=== PATIENT | female | born 1945 | race Caucasian/White ===

== ENCOUNTER → 2017-09-10 14:53 | Outpatient (CLI) | payer MEDICARE, OTHER, SELFPAY ==
--- NOTE | 2017-09-10 15:04 | BI_ITS ---
MAMMOGRAPHY - BILATERAL SCREENING REASON FOR EXAM: Female, 72 years old. Routine annual screening examination. PERTINENT HISTORY: Non-contributory. Bilateral breast implants. TECHNIQUE: Digital bilateral breast jaime (3D mammographic acquisition) in the CC and MLO projections. 2-D mediolateral oblique (MLO) and craniocaudad (CC) views of both breasts were obtained. CAD: Full Field Digital Mammography with Computer Added Detection was performed. COMPARISON: Comparison is made with prior study dated January 04, 2017. FINDINGS: Breast Composition: The breasts are heterogeneously dense, which may obscure small masses. There are no dominant masses or suspicious calcifications. Stable appearance of the bilateral breast implants. No other significant abnormalities are identified. There has been no significant change since the prior study. BI/SCREENING MAMM (CAD), BILAT IMPRESSION: Stable bilateral screening mammogram. Yearly follow-up mammogram recommended. (A) ASSESSMENT CATEGORY: BIRADS Category 2: Benign. A letter regarding these results will be sent to the patient by the facility within 30 days. Approximately 10% of breast cancers are not detected by mammography. A normal mammogram should not delay biopsy of a clinically suspicious abnormality. [id number] Electronically Signed: Alberto Chopra MD at 8:44 EDT Tel [phone], Service support ,
== END ==
PROVIDERS: Family Provider Family Medicine; PCP Family Medicine; Visit Provider Family Medicine
DX: Z12.31 Encounter for screening mammogram for malignant neoplasm of breast (principal)
CPT/HCPCS: 77063; 77067

== ENCOUNTER → 2018-03-31 15:29 | Outpatient (CLI) | payer MEDICARE, OTHER, SELFPAY ==
[2018-03-31 18:13] LABS: ALB/GLOB Ratio 0.9 RATIO (0.9-2.4); AST(SGOT) 18 U/L (15-37); Alanine Aminotransfer ALT/SGPT 27 U/L (13-56); Albumin, Serum 3.7 g/dL (3.2-5.0); Alkaline Phosphatase 61 U/L (45-117); Anion Gap 8 (5-15); BUN 14 mg/dL (7-18); BUN/Creat Ratio 18.5 RATIO (10-20); Calcium,Total 8.7 mg/dL (8.5-10.1); Chloride 106 mmol/L (98-107); Creatinine, Serum 0.76 mg/dL (0.55-1.02); EST Glomerular Filtration Rate 80 mL/min (>60); Est Glom Filt Rate - Afr Amer 97 mL/min (>60); Globulin 3.9 g/dL (2.2-4.2); Glucose 91 mg/dL (74-106); Potassium 3.6 mmol/L (3.5-5.1); Protein, Total 7.6 g/dL (6.4-8.2); Sodium Level 140 mmol/L (136-145); Thyroid Stim Hormone (TSH) 1.52 uIU/mL (0.358-3.74)
[2018-03-31 18:16] LABS: Vitamin D,25 Hydroxy 19.2 ng/mL (29.95-100.01)
== END ==
PROVIDERS: Family Provider Family Medicine; PCP Family Medicine; Visit Provider Family Medicine
DX: M81.0 Age-related osteoporosis without current pathological fracture (principal); R73.03 Prediabetes
CPT/HCPCS: 36415; 80053; 82306; 84443

== ENCOUNTER → 2018-10-13 09:50 | Outpatient (CLI) | payer MEDICARE, OTHER, SELFPAY ==
--- NOTE | 2018-10-13 10:00 | BD_ITS ---
STUDY: DUAL ENERGY X-RAY ABSORPTIOMETRY / DXA REASON FOR EXAM: Female, 73 years old. Early menopause. Loss of height. TECHNIQUE: Bone Mineral Density (BMD) measurements of lumbar spine and bilateral hips were obtained. COMPARISON: Comparison is made with prior examination dated July 07, 2016. FINDINGS: Lumbar Spine (L1-L4): g/cm2 (0.763) / T-score (-3.5) / Z-score (-1.8) Findings are suggestive of osteoporosis with a high fracture risk. Increased thoracic kyphosis. Left Femur Total: g/cm2 (0.753) / T-score (-2.0) / Z-score (-0.4) Left Femoral Neck: g/cm2 (0.762) / T-score (-2.0) / Z-score (-0.2) Right Femur Total: g/cm2 (0.746) / T-score (-2.1) / Z-score (-0.4) Right Femoral Neck: g/cm2 (0.772) / T-score (-1.9) / Z-score (-0.1) The T-Scores on the most recent prior examination were: Lumbar Spine (L1-L4): There has been worsening of bone density since the previous examination. Left Femur Total: which represents an improvement of 0.4%. Right Femur Total: which represents a worsening of 2.9%. BD/Dexa Bone Density Study IMPRESSION: The patient is considered osteoporotic as outlined below according to World [employer] Organization (WHO) criteria with a high fracture risk. There has been worsening of bone density since the previous examination. Reference Information: The T-score is the number of standard deviations above or below the standard which is normal for young adults at their peak bone mineral density. The World Health Organization (WHO) interprets the T-scores as follows: Above -1 Normal bone density Between -1 and -2.5 Osteopenia Equal to / or below -2.5 Osteoporosis As a practical clinical guideline, osteopenia may be graded as follows: Mild -1 through -1.5 Moderate -1.6 through -2.0 Severe -2.1 through -2.4 The Z-score is the number of standard deviations above or below age-matched controls. A Z-score of less than -1.5 would be considered abnormal. References: 1. NIH Osteoporosis and Related Bone Diseases http://www.osteo.org 2. International Society for Clinical Densitometry http://www.iscd.org 3. National Osteoporosis Foundation http://www.nof.org Electronically Signed: Alberto Chopra, at 13:04 EDT , Service support ,
== END ==
PROVIDERS: Family Provider Family Medicine; PCP Family Medicine; Referring Provider Family Medicine; Visit Provider Family Medicine
DX: Z78.0 Asymptomatic menopausal state (principal)
CPT/HCPCS: 77080

== ENCOUNTER → 2018-10-17 13:48 | Outpatient (CLI) | payer MEDICARE, OTHER, SELFPAY ==
[2018-10-17 15:54] LABS: Anion Gap 6 (5-15); BUN 14 mg/dL (7-18); BUN/Creat Ratio 16.1 RATIO (10-20); Calcium,Total 9.1 mg/dL (8.5-10.1); Chloride 107 mmol/L (98-107); Creatinine, Serum 0.87 mg/dL (0.55-1.02); EST Glomerular Filtration Rate 68 mL/min (>60); Est Glom Filt Rate - Afr Amer 82 mL/min (>60); Glucose 124 mg/dL (74-106); Potassium 3.9 mmol/L (3.5-5.1); Sodium Level 139 mmol/L (136-145)
[2018-10-17 16:06] LABS: Vitamin D,25 Hydroxy 22.6 ng/mL (29.95-100.01)
== END ==
PROVIDERS: Family Provider Family Medicine; PCP Family Medicine; Visit Provider Family Medicine
DX: M81.0 Age-related osteoporosis without current pathological fracture (principal)
CPT/HCPCS: 36415; 80048; 82306

== ENCOUNTER → 2018-10-24 15:02 | Outpatient (CLI) | payer MEDICARE, OTHER, SELFPAY ==
--- NOTE | 2018-10-24 15:03 | BI_ITS ---
MAMMOGRAPHY - BILATERAL SCREENING REASON FOR EXAM: Female, 73 years old. Routine annual screening examination. PERTINENT HISTORY: Non-contributory. History of bilateral breast implants. TECHNIQUE: Digital bilateral breast jaime (3D mammographic acquisition) in the CC and MLO projections. 2-D mediolateral oblique (MLO) and craniocaudad (CC) views of both breasts were obtained. CAD: Full Field Digital Mammography with Computer Added Detection was performed. COMPARISON: Comparison is made with prior examination dated September 10, 2017 and July 07, 2016. FINDINGS: Breast Composition: The breasts are extremely dense, which lowers the sensitivity of mammography. There are no dominant masses or suspicious calcifications. Stable appearance of the bilateral breast implants. No other significant abnormalities are identified. There has been no significant change since the prior study. BI/SCREENING MAMM (CAD), BILAT IMPRESSION: Stable bilateral screening mammogram. Yearly follow-up mammogram recommended. (A) ASSESSMENT CATEGORY: BIRADS Category 2: Benign. A letter regarding these results will be sent to the patient by the facility within 30 days. Approximately 10% of breast cancers are not detected by mammography. A normal mammogram should not delay biopsy of a clinically suspicious abnormality. [id number] Electronically Signed: Alberto Chopra, at 9:21 EDT , Service support ,
== END ==
PROVIDERS: Family Provider Family Medicine; PCP Family Medicine; Referring Provider Family Medicine; Visit Provider Family Medicine
DX: Z12.31 Encounter for screening mammogram for malignant neoplasm of breast (principal)
CPT/HCPCS: 77063; 77067

== ENCOUNTER → 2019-02-17 10:55 | Outpatient (CLI) | payer MEDICARE, OTHER, SELFPAY ==
--- NOTE | 2019-02-17 11:01 | RAD_ITS ---
STUDY: X-RAY - LUMBAR SPINE REASON FOR EXAM: Female, 73 years old. Back pain. TECHNIQUE: 5 view(s) of the lumbar spine were obtained. COMPARISON: None FINDINGS: Normal lumbar lordosis. There is no substantial scoliosis. There is a normal alignment of the vertebrae. There is multilevel endplate spondylosis of the lumbar vertebrae. Normal disc space heights. There is atherosclerotic calcification of the abdominal aorta without a demonstrated aneurysm. There are clips within the pelvis consistent with prior tubal ligation. There is a linear density projecting over the pelvis left of midline which may be postsurgical in nature. RAD/L/S Spine Min 4 Views IMPRESSION: Degenerative changes. Atherosclerosis. Electronically Signed: Nicky Fernandez MD at 21:41 EDT Tel , Service support ,
== END ==
PROVIDERS: Family Provider Family Medicine; PCP Family Medicine; Referring Provider Family Medicine; Visit Provider Family Medicine
DX: M54.9 Dorsalgia, unspecified (principal)
CPT/HCPCS: 72110

== ENCOUNTER 2019-03-02 10:51 | Outpatient (RCR) | payer MEDICARE, OTHER, SELFPAY ==
--- NOTE | 2019-03-02 11:48 | HP.PTEVAL ---
Patient's Visit Information GAVIN STRANGE is a 73 year old F referred to Physical Therapy by Paul Cool MD with a diagnosis of ARTHRITIS LUMBAR SPINE. Date of Evaluation: 03/02/19 Physical Therapist: Alessio Kirkland PT, Cert MDT, OCS - Visit Plan Frequency: 1 VISIT Plan: EVAL ONLY FOR HEP - Subjective Findings: This 73 y/o female presents to physical therapy with lumbar pain with arthritis . Patient has occasionally back pain. Pateint is active but also had right L-S pain from working in garden 6 hrs. Patient denies parathesia/tingling.Bowel/bladder -. Coughing/sneezing-. Aggravating factors yardwork ,lifting,. Alleviating factors walking.Patient pain affects ability to do housework and yard work. did x-rays DDD. SOCIAL: . VOCATION: retired - Objective POSTURE: mild foward posture. GAIT: normal elias. PALPATION: unremrakable. NEURO: intact. MMT: quads/hams/hams/hip/ankle 4/5. FLEXABILITY: Hamstrings MIN tight. LUMBAR ROM: flexion min loss,extension min loss,side glides min loss - Special Tests L/S Slump test left side: Negative L/S Slump test right side: Negative L/S Left Straight Leg Raise: Negative L/S Right Straight Leg Raise: Negative Lumbar Standing: Flexion - Mechanical Response: No effect Lumbar Standing: Flexion - Symptoms During Testing: Produces Lumbar Standing: Extension - Mechanical Response: No effect Lumbar Standing: Extension - Symptoms During Testing: Increases Lumbar Standing: Extension - Symptoms After Testing: No worse Lumbar Standing: Right Side Glides - Mechanical Response: No effect Lumbar Standing: Right Side [place] - Symptoms During Testing: No effect Lumbar Standing: Right Side [place] - Symptoms After Testing: No effect Lumbar Standing: Left Side [place] - Mechanical Response: No effect Lumbar Standing: Left Side [place] - Symptoms During Testing: No effect Lumbar Standing: Left Side [place] - Symptoms After Testing: No effect - Goals Goal 1:: Provided HEP FOR lumbar spine. Goal Time Frame: 1 visit - Rehabilitation Potential Physical Therapy Diagnosis: This patient gas weak core muscles thus benifit from HEP. Rehabilitation Potential: Good - Anticipated Interventions Patient/Client Instruction: Educate patient on: Condition, Plan of Care Other: HEP Thank you for the opportunity to evaluate your patient. For Medicare and Medicare HMO plans, please review the plan of care and approve it. It will need to be FAXED BACK to us at [phone] for Medicare purposes. For Medicare only, by signing this I certify the plan of care. Please let me know if there are questions or concerns regarding this plan of care. Physician Signature: Date:
== END 2019-03-02 19:00 | disposition home or self-care (01) ==
LOC: PT 10:51
PROVIDERS: Family Provider Family Medicine; PCP Family Medicine; Visit Provider Family Medicine
DX: M46.96 Unspecified inflammatory spondylopathy, lumbar region (principal)
CPT/HCPCS: 97162

== ENCOUNTER → 2019-03-28 14:02 | Outpatient (CLI) | payer MEDICARE, OTHER, SELFPAY ==
[2019-03-28 16:39] LABS: Vitamin D,25 Hydroxy 54.5 ng/mL (29.95-100.01)
== END ==
PROVIDERS: Family Provider Family Medicine; PCP Family Medicine; Referring Provider Family Medicine; Visit Provider Family Medicine
DX: E55.9 Vitamin D deficiency, unspecified (principal)
CPT/HCPCS: 36415; 82306

== ENCOUNTER → 2019-10-02 14:58 | Outpatient (CLI) | payer MEDICARE, OTHER, SELFPAY ==
[2019-10-02 18:19] LABS: Absolute Lymphocyte Count 1.28 X10^3/uL (0.83-4.51); Absolute Neutrophil Count 4.4 X10^3/uL (2.0-7.7); Basophil# 0.03 X10^3/uL; Basophil% 0.5 % (0-1); Eosinophil# 0.06 X10^3/uL; Eosinophils% 0.9 % (0-5); Hematocrit 40.2 % (37-47); Hemoglobin 13.1 g/dL (12.0-15.0); Lymphocyte # 1.28 X10^3/ul (4.0); Mean Corp Hgb Conc 32.6 g/dL (32-36); Mean Corpuscular Hgb 27.6 pg (27.0-32.0); Mean Corpuscular Volume 84.6 fL (81-99); Mean Platelet Vol. 10.5 fl (6.2-12.0); Monocyte# 0.63 X10^3/uL; Monocyte% 9.8 % (0-10); NRBC Flagged by Analyzer 0 % (0-5); Neutrophil # 4.39 X10^3/uL (2.7-7.7); Neutrophil % 68.6 % (47-70); Platelet Count 274 K/mm3 (150-450); RBC Distribution Width CV 14.2 % (11.6-14.6); RBC Distribution Width SD 43.9 fl (35.1-43.9); Red Blood Count 4.75 M/mm3 (4.2-5.4); White Blood Count 6.4 K/mm3 (4.4-11.0)
[2019-10-02 18:21] LABS: Vitamin B12 337 pg/mL (211-911)
[2019-10-02 18:30] LABS: Anion Gap 4 (5-15); BUN 14 mg/dL (7-18); BUN/Creat Ratio 15.8 RATIO (10-20); Calcium,Total 9.2 mg/dL (8.5-10.1); Chloride 108 mmol/L (98-107); Cholesterol 201 mg/dL (200); Creatinine, Serum 0.89 mg/dL (0.55-1.02); EST Glomerular Filtration Rate 66 mL/min (>60); Est Glom Filt Rate - Afr Amer 80 mL/min (>60); Glucose 94 mg/dL (74-106); High Density Lipoprotein 73 mg/dL; Potassium 3.6 mmol/L (3.5-5.1); Sodium Level 139 mmol/L (136-145); Triglycerides 102 mg/dL; Very Low Density Lipoprotein 20 mg/dL (5-40)
[2019-10-02 18:31] LABS: Erythrocyte Sedimentation Rate 15 mm/hr (0-30)
== END ==
LOC: MFPLAB 15:00 → LAB 10-03 07:08 → LABSPEC 10-03 07:36
PROVIDERS: PCP Family Medicine; Referring Provider Family Medicine; Visit Provider Family Medicine
DX: Z00.00 Encounter for general adult medical examination without abnormal findings (principal); R41.3 Other amnesia; I10 Essential (primary) hypertension
CPT/HCPCS: 36415; 80048; 80061; 82607; 84443; 85025; 85652; 87077; 87086; 87088; 87186

== ENCOUNTER → 2019-10-26 10:08 | Outpatient (CLI) | payer MEDICARE, OTHER, SELFPAY ==
[2019-10-06 10:46] VITALS: BMI 17.4
--- NOTE | 2019-10-26 10:09 | BI_ITS ---
MAMMOGRAPHY - BILATERAL SCREENING REASON FOR EXAM: Female, 74 years old. Routine annual screening examination. PERTINENT HISTORY: Non-contributory. Bilateral breast implants. TECHNIQUE: Digital bilateral breast lavell (3D mammographic acquisition) in the CC and MLO projections. 2-D mediolateral oblique (MLO) and craniocaudad (CC) views of both breasts were obtained. CAD: Full Field Digital Mammography with Computer Added Detection was performed. COMPARISON: Comparison is made with prior study dated October 24, 2018 and September 10, 2017. FINDINGS: Breast Composition: The breasts are extremely dense, which lowers the sensitivity of mammography. There are no dominant masses or suspicious calcifications. Stable appearance of the bilateral breast implants. No other significant abnormalities are identified. There has been no significant change since the prior study. BI/SCREEN MAMM (CAD) W/LAVELL BILAT IMPRESSION: Stable bilateral screening mammogram. Yearly follow-up mammogram recommended. (A) ASSESSMENT CATEGORY: BIRADS Category 2: Benign. A letter regarding these results will be sent to the patient by the facility within 30 days. Approximately 10% of breast cancers are not detected by mammography. A normal mammogram should not delay biopsy of a clinically suspicious abnormality. [id number] Electronically Signed: Alberto Chopra, at 10:30 EDT , Service support ,
== END ==
PROVIDERS: PCP Internal Medicine; Referring Provider Family Medicine; Visit Provider Family Medicine
DX: Z12.31 Encounter for screening mammogram for malignant neoplasm of breast (principal)
CPT/HCPCS: 77063; 77067

== ENCOUNTER 2020-09-30 10:52 | Observation (INO) | payer MEDICARE, OTHER, SELFPAY ==
[2019-10-06 10:46] VITALS: BMI 17.4
[2020-09-30] VITALS (9 sets, daily range): BP systolic 146–207; BP diastolic 66–90; PULSE 47–106; RESP 14–20; TEMP 36.2–36.6; O2SAT 96–100; BMI 16.5; BMI 16.0; BMI 16.1
--- NOTE | 2020-09-30 11:29 | EKG12_ITS ---
Test Reason : SYNCOPE Blood Pressure : / mmHG Vent. Rate : 081 BPM Atrial Rate : 081 BPM P-R Int : 126 ms QRS Dur : 084 ms QT Int : 392 ms P-R-T Axes : 073 069 063 degrees QTc Int : 455 ms Normal sinus rhythm Left ventricular hypertrophy Abnormal ECG Confirmed by HUNTER DIAZ, ERICKSON ([id number]), online editor AURELIA SUH ([id number]) on 10/02/2020 8:59:43 AM Referred By: ASHLEY
--- NOTE | 2020-09-30 11:29 | CT_ITS ---
STUDY: CT BRAIN WITHOUT CONTRAST REASON FOR EXAM: Female, 75 years old. head injury RADIATION DOSAGE (If Supplied By Facility): CTDIvol = ( 44.99 ) mGy, DLP = ( 745.49 ) mGycm TECHNIQUE: Transaxial CT imaging of the brain was performed without administration of intravenous contrast material. Individualized dose optimization techniques were used for this CT. COMPARISON: No relevant priors. FINDINGS: Normal soft tissue structures. Normal calvarium. There is mild cerebral atrophy with widening of the extra-axial spaces and ventricular dilatation. There are areas of decreased attenuation within the white matter tracts of the supratentorial brain, consistent with microvascular disease changes. There are small punctate calcifications of the basal ganglia which are seen in the aging brain as a normal variant. Normal brainstem. Normal cerebellum. There is no intracranial hemorrhage. There are no findings of an acute ischemic infarction. Normal visualized paranasal sinuses. CT/Brain/Head without Contrast IMPRESSION: Chronic involutional changes of the brain. Electronically Signed: Mohinder De La O MD at 13:03 EDT Tel , Service support ,
--- NOTE | 2020-09-30 11:31 | ED.DCSUM_ITS ---
History of Present Illness Chief Complaint: Syncope Informant: Patient, Family Narrative: 75-year-old female presenting with episode of syncope sustained a laceration to her scalp. Patient's says he does not believe she hit anything on the way down. She was standing at the sink when this occurred. He states she was unconscious for 2 minutes. When she woke up it took her a minute or so to start talking. She denies any dizziness, lightheadedness, shortness of breath, chest pain, fever, chills prior to her fall. She is not had any black or bloody stools. She denies any abdominal pain, dysuria, hematuria. She states has been otherwise eating and drinking normally. She is making normal urine and stool. - Past Medical History (1) Hypertension Status: Chronic (2) Osteoporosis Status: Chronic Past Medical History - Allergies and Home Meds Allergies/Adverse Reactions: Allergies No Known Allergies Allergy (Verified 09/30/20 10:53) Prior records reviewed: Yes Past Medical History: - Surgical History: noncontributory - Viewed in problem list Lives: Spouse/ Significant Other Smoking Status: Light Smoker (<10/day) Alcohol: None Drugs: None - Family History Maternal Family History: Family History (Last Updated 10/06/19 @ 10:42 by Leslie Yancey) Father Diabetes Uncle Diabetes Review of Systems General: Denies: Chills, Fever, Sweats Eyes: Denies: Visual changes - bilaterally, Diplopia ENT: Denies: Rhinorrhea, Sore throat Cardiovascular: Denies: Chest pain, Palpitations Respiratory: Denies: Dyspnea, Cough, Dyspnea on exertion Gastrointestinal: Denies: Abdominal pain, Nausea, Vomiting, Diarrhea, Melena, Hematochezia Genitourinary: Denies: Dysuria, Hematuria, Frequency Musculoskeletal: Denies: Back pain, Extremity Pain Skin: Reports: Wounds - Laceration to scalp.. Denies: Rash Neurological: Denies: Headache, Weakness, Numbness Psych: Denies: Depression, Anxiety, Suicidal thoughts, Suicidal ideations, -, - Endocrine: Denies: Polyuria, Polydipsia, Heat intolerance, Cold intolerance, -, - Physical Exam Vital Signs/Narrative: Vital Signs Temp Pulse Resp BP Pulse Ox 09/30/20 10:55 97.2 F L 106 H 14 177/87 H 99 Inital Vital Signs reviewed: Yes General: Well nourished, Well developed, No Acute Distress Eyes: Perrl, EOMI ENT: Moist mucous membranes, No rhinorrhea Cardiovascular: Regular rate, Regular rhythm, No murmurs Abdomen: Soft, Nontender, Nondistended, Normal bowel sounds Back: Nontender, Normal Inspection Extremities: Nontender, No edema Skin: Normal color, No rash, - - Serration to scalp under matted hair occipitally. No active bleeding. Neurological: Alert, Oriented x3, Cranial nerves II-XII grossly intact, Normal Strength, Normal Sensation Psychological: Normal affect, Normal Mood Diagnostic/Tx/Re-eval Clinical Impression(s) from Imaging Studies Brain CT 09/30/20 11:29 IMPRESSION: Chronic involutional changes of the brain. Electronically Signed: Mohinder De La O MD at 13:03 EDT Tel , Service support , Chest X-Ray 09/30/20 13:30 IMPRESSION: Emphysema without pneumonia or atelectasis. Electronically Signed: Mohinder De La O MD at 14:09 EDT Tel , Service support , Laboratory Data 09/30/20 09/30/20 11:45 11:45 WBC 8.5 RBC 4.92 Hgb 13.6 Hct 41.7 MCV 84.8 MCH 27.6 MCHC 32.6 RDW Std Deviation 44.9 H RDW Coeff of Osbaldo 14.6 Plt Count 220 MPV 9.6 Immature Gran % (Auto) 0.200 Neut % (Auto) 83.0 H Lymph % (Auto) 8.5 L Woodward % (Auto) 7.4 Eos % (Auto) 0.4 Baso % (Auto) 0.5 Absolute Neuts (auto) 7.0 Absolute Lymphs (auto) 0.72 L Nucleated RBC % 0 Sodium 139 Potassium 3.4 L Chloride 104 Carbon Dioxide 28.0 Anion Gap 7 BUN 12 Creatinine 1.00 Estim Creat Clear Calc 31.39 Est GFR (MDRD) Af Amer 70 Est GFR (MDRD) Non-Af 58 L BUN/Creatinine Ratio 12.0 Glucose 105 Calcium 9.0 Total Bilirubin 0.50 AST 14 L ALT 20 Alkaline Phosphatase 61 Troponin I < 0.015 Total Protein 7.9 Albumin 3.8 Globulin 4.1 Albumin/Globulin Ratio 0.9 - Medical Decision Making Seen and evaluated on arrival for episode of syncope in which she lost consciousness and hit her head. Her states that there was delay in her waking up however she was alert and awake after about a few minutes. Patient did not have any seizure activity. EKG performed on arrival shows a sinus rhythm at 81 bpm without signs of ischemic changes as interpreted by myself. Chest x-ray interpreted by myself shows no acute cardiopulmonary process. Radiology does agree. CBC shows stable H&H. CMP is unremarkable with exception of a potassium of 3.4 and a slight decrease in her GFR. Does not have prerenal azotemia. Troponin is negative. After examining the patient's scalp does appear she has a punctate area that was bleeding which is now resolved. She does not require pina at this time. During patient stay in the ED she had been noted to have runs of bradycardia into the 40s and some PVCs on the monitor. This was got caught on EKG. Patient was discussed with who did look at the rhythm strips and felt the patient was best to be admitted for echocardiogram and loop recorder. There was some delay in getting the patient admitted as she kept changing her mind as to whether she would stay in the hospital. Ultimately she did agree to stay in the hospital. Patient was discussed with the hospitalist and patient admitted in stable condition. Impression: 1. Syncope 2. Bradycardia 3. Scalp abrasion ED Disposition - Plan for ED Patient: Disposition: Home or Assisted Living
[2020-09-30 11:58] LABS: Absolute Lymphocyte Count 0.72 X10^3/uL (0.83-4.51); Basophil# 0.04 X10^3/uL; Basophil% 0.5 % (0-1); Eosinophil# 0.03 X10^3/uL; Eosinophils% 0.4 % (0-5); Hematocrit 41.7 % (37-47); Hemoglobin 13.6 g/dL (12.0-15.0); Lymphocyte # 0.72 X10^3/ul (0.83-4.51); Lymphocyte % 8.5 % (19-41); Mean Corp Hgb Conc 32.6 g/dL (32-36); Mean Corpuscular Hgb 27.6 pg (27.0-32.0); Mean Corpuscular Volume 84.8 fL (81-99); Mean Platelet Vol. 9.6 fl (6.2-12.0); Monocyte# 0.63 X10^3/uL; Monocyte% 7.4 % (0-10); NRBC Flagged by Analyzer 0 % (0-5); Neutrophil # 7.02 X10^3/uL (2.7-7.7); Platelet Count 220 K/mm3 (150-450); RBC Distribution Width CV 14.6 % (11.6-14.6); RBC Distribution Width SD 44.9 fl (35.1-43.9); Red Blood Count 4.92 M/mm3 (4.2-5.4); White Blood Count 8.5 K/mm3 (4.4-11.0)
[2020-09-30 12:18] LABS: ALB/GLOB Ratio 0.9 RATIO (0.9-2.4); AST(SGOT) 14 U/L (15-37); Alanine Aminotransfer ALT/SGPT 20 U/L (13-56); Albumin, Serum 3.8 g/dL (3.2-5.0); Alkaline Phosphatase 61 U/L (45-117); Anion Gap 7 (5-15); BUN 12 mg/dL (7-18); Chloride 104 mmol/L (98-107); EST Glomerular Filtration Rate 58 mL/min (>60); Est Glom Filt Rate - Afr Amer 70 mL/min (>60); Estimated Creatinine Clearance 31.39 ml/min; Globulin 4.1 g/dL (2.2-4.2); Glucose 105 mg/dL (74-106); Potassium 3.4 mmol/L (3.5-5.1); Protein, Total 7.9 g/dL (6.4-8.2); Sodium Level 139 mmol/L (136-145)
--- NOTE | 2020-09-30 13:30 | RAD_ITS ---
STUDY: X-RAY CHEST REASON FOR EXAM: Female, 75 years old. syncope TECHNIQUE: Single AP portable view of the chest. COMPARISON: 12/29/2016 FINDINGS: There is hyperinflation of the lungs consistent with chronic obstructive lung disease (COPD). There is no demonstrated pleural abnormality. Normal size heart. Normal mediastinum and jonas. Normal visualized pulmonary arteries. Normal visualized aortic arch and descending thoracic aorta. Normal visualized thoracic spine. Normal visualized ribs, clavicles, and shoulders. There is no demonstrated abnormality of the visualized soft tissue structures of the upper abdomen. RAD/Chest 1 View (Portable) IMPRESSION: Emphysema without pneumonia or atelectasis. Electronically Signed: Mohinder De La O MD at 14:09 EDT Tel , Service support ,
--- NOTE | 2020-09-30 16:00 | ED.RN ---
notified of bradycardia during orthostats. Pt asymptomatic. at bedside and aware of bradycardia.
--- NOTE | 2020-09-30 16:19 | PCM.HP.STD ---
Problem List (1) Scalp laceration Status: Acute (2) Head injury Status: Acute (3) Hypertensive urgency Status: Acute (4) Hypertension Status: Chronic (5) Osteoporosis Status: Chronic History of Present Illness Date of Admission: 09/30/20 Chief Complaint: Collapse, head injury. The patient is a 75 year old F with past medical history as mentioned above presented to the emergency room because of sudden collapse and head injury. Patient stated that she was standing and all of a sudden, she collapsed to the floor. She stated that she had no prodromal symptoms. She denied being dizzy or lightheaded. She denied chest pain, palpitation, shortness of breath. Her mentioned that she collapsed but she did not lose her consciousness. Patient mentioned that she was awake throughout the event and she was aware of surroundings. She mentioned that she is not taking any medication at home but obviously, she does have history of hypertension and she is supposed to be on Norvasc. She saw her PCP on Oct, 2019 and visit note was reviewed. In the emergency department, her blood pressure was very high and was up to 201/90. Initially, she was tachycardic but then heart rate went down to 60s. Other vital signs were stable. Routine blood work was remarkable for potassium of 3.4, otherwise normal. EKG revealed normal sinus rhythm, normal CO interval, normal QRS, normal QTC, no acute ischemic changes. Troponin was negative. CT scan brain showed no acute infarct or hemorrhage. Chest x-ray showed no acute infiltrate or consolidation. She is being admitted for hypertensive urgency, near syncopal episode and collapse as well as head injury. Past Medical History Past Medical History (Chronic Problems): Chronic Problems (Last Updated 10/06/19 @ 10:46 by Leslie Yancey) Hypertension (Chronic) Osteoporosis (Chronic) Medical History: Medical History (Last Updated 10/06/19 @ 10:46 by Leslie Yancey) Decreased hearing H91.90 Rash R21 Allergies No Known Allergies Allergy (Verified 09/30/20 10:53) Home Medications: Ambulatory Orders Medication Instructions Recorded NK 09/30/20 Surgical History: Surgical History (Last Updated 10/06/19 @ 10:41 by Leslie Yancey) No pertinent past surgical history Z78.9 Surgical History: noncontributory - Viewed in problem list Psychiatric History: No pertinent psych hx [employer] History: No pertinent [employer] history Lives: Spouse/ Significant Other Smoking Status: Current every day smoker Tobacco Use: Cigarettes Alcohol: None Drugs: None - *Family History Maternal Family History: Family History (Last Updated 10/06/19 @ 10:42 by Leslie Yancey) Father Diabetes Uncle Diabetes Review of Systems Constitutional: Denies: Anorexia, Chills, Fever, Weakness Eyes: Denies: Blurred vision, Double vision, Drainage, Redness HEENT: Denies: Difficulty Hearing, Dysphasia, Ear Pain, Nasal Congestion, Sore Throat Cardiovascular: Denies: Chest Pain, Chest Pressure, Edema, Heaviness, Palpitations, Syncope Respiratory: Denies: Cough, Pleuritic Pain, Shortness of Breath, Sputum production, Wheezing Gastrointestinal: Denies: Abdominal Pain, Constipation, Diarrhea, Nausea, Vomiting Genitourinary: Denies: Dysuria, Frequency, Hematuria Musculoskeletal: Denies: Arm Pain, Back Pain, Foot Pain Skin: Denies: Dryness, Rash Neurological: Denies: Balance problems, Double vision, Change in Speech, Slurred speech, Confusion, Focal weakness, Headaches, Numbness Psychiatric: Denies: Anxiety, Depression Endocrine: Denies: Change in Body Habitus, Polydipsia, Polyuria VTE Information - Inpt Only VTE Present on Admission: No VTE Mechan Device Prophylaxis: None VTE Pharm Prophylaxis ordered?: Yes Patient Problems: Active and Suspected Problems (Last Updated 10/06/19 @ 10:46 by Leslie Yancey) Scalp laceration (Acute) Head injury (Acute) Hypertensive urgency (Acute) - Physical Exam Vitals/I&O's: Vital Signs Temp Pulse Resp BP Pulse Ox 97.2 F L 63 16 207/90 H 100 09/30/20 10:55 09/30/20 15:55 09/30/20 15:00 09/30/20 15:55 09/30/20 13:00 Oxygen Delivery Method Room Air Weight: 90 lb 2.705 oz Body Mass Index (BMI) 16.5 General: Alert, Oriented x3, Cooperative HEENT: PERRLA, EOMI, - - Traumatic, occipital scalp laceration. Oral: Moist Mucosa, No Gingival or Mucosal Lesions/ Ulcerations Neck: Supple, No JVD, Negative Carotid Bruits, Trachea Midline, Thyroid Normal Size and Texture Lungs: Clear to auscultation, Normal air movement, No rhonchi, No wheeze, No rales, Diminished Cardiovascular: Regular rate, Regular Rhythm, Normal S1, Normal S2, PMI Normal Abdomen: Bowel Sounds Present, Soft, Non Tender, Non-Distended, No Hepato-splenomegaly Extremities: No clubbing, No cyanosis, No edema Skin: No rashes, Ulcer/ Wound - Occipital scalp laceration. Lymphatic: No Cervical, Supraclavicular, or Inguinal Adenopathy Neurological: Cranial nerves II-XII grossly intact, Motor Exam 5/5 strength throughout Psych/Mental Status: Normal Affect, Appropriate, Alert and oriented to time, place, person, mood and affect Laboratory Results 09/30/20 11:45: WBC 8.5, RBC 4.92, Hgb 13.6, Hct 41.7, MCV 84.8, MCH 27.6, MCHC 32.6, RDW Std Deviation 44.9 H, RDW Coeff of Osbaldo 14.6, Plt Count 220, MPV 9.6, Immature Gran % (Auto) 0.200, Neut % (Auto) 83.0 H, Lymph % (Auto) 8.5 L, [place] % (Auto) 7.4, Eos % (Auto) 0.4, Baso % (Auto) 0.5, Absolute Neuts (auto) 7.0, Absolute Lymphs (auto) 0.72 L, Nucleated RBC % 0 09/30/20 11:45: Sodium 139, Potassium 3.4 L, Chloride 104, Carbon Dioxide 28.0, Anion Gap 7, BUN 12, Creatinine 1.00, Estim Creat Clear Calc 31.39, Est GFR (MDRD) Af Amer 70, Est GFR (MDRD) Non-Af 58 L, BUN/Creatinine Ratio 12.0, Glucose 105, Calcium 9.0, Total Bilirubin 0.50, AST 14 L, ALT 20, Alkaline Phosphatase 61, Troponin I < 0.015, Total Protein 7.9, Albumin 3.8, Globulin 4.1, Albumin/Globulin Ratio 0.9 Clinical Impression(s) from Imaging Studies Brain CT 09/30/20 11:29 IMPRESSION: Chronic involutional changes of the brain. Electronically Signed: Mohinder De La O MD at 13:03 EDT Tel , Service support , Chest X-Ray 09/30/20 13:30 IMPRESSION: Emphysema without pneumonia or atelectasis. Electronically Signed: Mohinder De La O MD at 14:09 EDT Tel , Service support , Assessment/Plan All Active Problems (Last Updated 10/06/19 @ 10:46 by Leslie Yancey) Scalp laceration (Acute) Head injury (Acute) Hypertensive urgency (Acute) This is a 75 years old female patient presented to the emergency room because she collapsed on the floor without any prodromal symptoms, found to have highly elevated blood pressure, found to have occipital scalp laceration and she is being admitted for hypertensive urgency, near syncopal episode and collapse as well as head injury. #1 reported near syncopal episode/collapse: Could be due to high elevated blood pressure. Also, nursing staff reported that her heart rate was around 46 in the ED. EKG reviewed, revealed normal sinus rhythm, no acute ischemic changes and no cardiac arrhythmias. CT scan brain showed no acute findings. Blood pressure was high elevated in the ED. Plan: Admit to PCU for observation, cardiac monitoring, serial cardiac enzymes, start treatment for hypertension, 2D echocardiogram, IV fluids, TSH, check serum magnesium, replace potassium with p.o. potassium chloride, Tylenol as needed, Zofran as needed, repeat CBC and BMP tomorrow morning, PT OT evaluation and treatment. #2 hypertensive urgency: Patient does have a history of hypertension and she is supposed to be on Norvasc. She mentioned that she is not on any medication for hypertension although I reviewed the note from her PCPs office and she is on Norvasc for hypertension. Restart Norvasc 10 mg p.o. daily, start lisinopril 10 mg p.o. daily, IV hydralazine as needed. #3 head trauma/occipital scalp laceration: CT scan brain reviewed, no acute findings. #4 hypertension: Noncompliant, has not been taking her Norvasc and she kept saying that she does not take any medication for it. Plan as above. #5 DVT prophylaxis: Subcu Lovenox. This note was generated with [employer] software. It may contain incorrect words, spelling, and punctuation that were not noted in checking the note before signing. OBSV E&M: 17614 Initial observation care L3
--- NOTE | 2020-09-30 17:03 | ECHOCS_ITS ---
Reason For Study: Syncope Procedure This was a 2D Doppler, Color Flow transthoracic echocardiogram. The study was technically difficult. Contrast injection was performed. Possible breast implants. Bubble study performed. Exam performed portable in patient room. Left Ventricle Normal LV size. Left ventricular systolic function is normal. The estimated ejection fraction is 60 %. No evidence for diastolic dysfunction. No regional wall motion abnormalities noted. Right Ventricle Normal RV size. Normal systolic function. Atria Normal left atrium. Normal right atrium. No doppler evidence for ASD. Bubble contrast study negative for right to left interatrial shunt. Mitral Valve There is no mitral annular calcification. Mild mitral valve prolapse. Trivial mitral valve insufficiency. Tricuspid Valve Normal tricuspid valve. Trivial tricuspid valve insufficiency. Right ventricular systolic pressure estimated to be 27 mmHg. Aortic Valve The aortic valve is not well visualized. Mild focal aortic valve calcification. Pulmonic Valve The pulmonic valve is not well visualized. Great Vessels The aortic root is not well visualized. Pericardium/Pleural No pericardial effusion. Medication Diluted definity 4ml given slow IV push to enhance endocardial definition. Performed a rapid injection of agitated mix of 9 cc saline and 1cc air to assess for atrial septal defect. MMode/2D Measurements & Calculations LVIDd: 3.9 cm IVSd: 1.1 cm LA dimension: 3.3 cm LVIDs: 2.5 cm LVPWd: 0.91 cm RVDd: 3.1 cm FS: 35.3 % LAV(MOD-sp4): 40.0 ml LA A4 area: 14.8 cm2 Time Measurements MV dec time: 0.27 sec Doppler Measurements & Calculations MV E max dillan: 82.5 cm/sec Lat A' dillan: 8.5 cm/sec Med Peak E' Dillan: 7.9 cm/sec MV A max dillan: 91.1 cm/sec E/E' med: 10.5 MV E/A: 0.91 MV V2 max: 93.7 cm/sec MV P1/2t max dillan: 94.4 cm/sec Ao V2 max: 101.5 cm/sec MV max P.5 mmHg MV P1/2t: 67.5 msec Ao max P.1 mmHg MV V2 mean: 48.0 cm/sec MV dec slope: 409.6 cm/sec2 MV mean P.1 mmHg MV V2 VTI: 28.8 cm MVA(P1/2t): 3.3 cm2 LV V1 max: 89.8 cm/sec PA V2 max: 72.5 cm/sec TR max dillan: 244.4 cm/sec LV V1 max P.2 mmHg TR max P.9 mmHg ECHO/Echo Complete W/ Contrast Interpretation Summary The study was technically difficult. Contrast injection was performed. Left ventricular systolic function is normal. The estimated ejection fraction is 60 %. Mild mitral valve prolapse. Trivial mitral valve insufficiency. Trivial tricuspid valve insufficiency. Mild focal aortic valve calcification. Right ventricular systolic pressure estimated to be 27 mmHg. No evidence for diastolic dysfunction. Bubble contrast study negative for right to left interatrial shunt. Ordering Physician: Pj White Referring Physician: Ron Dubose Performed By: Sourav Pollock RCS
--- NOTE | 2020-09-30 17:27 | PCM.NTREPORT ---
Nutrition Therapy Report - History Nutrition Services has been consulted to:: Manage nutrient details of diet order Current diet / nutrition support order:: Regular diet. 120 ml ensure enlive 4 times per day with medpass - Anthropometric Measurements Height:: 5 ft 2 in Weight:: 39.9 kg Body Mass Index (BMI):: 16.0 - Relevant Labs Relevant Labs:: RDW Std Deviation 44.9 fl (35.1-43.9) H 09/30/20 11:45 Neut % (Auto) 83.0 % (47-70) H 09/30/20 11:45 Lymph % (Auto) 8.5 % (19-41) L 09/30/20 11:45 Absolute Lymphs (auto) 0.72 X10^3/uL (0.83-4.51) L 09/30/20 11:45 Potassium 3.4 mmol/L (3.5-5.1) L 09/30/20 11:45 Est GFR (MDRD) Non-Af 58 mL/min (>60) L 09/30/20 11:45 AST 14 U/L (15-37) L 09/30/20 11:45 - Assessment Food / Nutrition-Related History:: Pt reports UBW~90-92 lbs which is still quite low weight for height; calculated wt loss~3% x past 1-2 months. Pt with muscle and fat wasting evident in the face, orbitals, clavicle, arms and legs. 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 PO to be established as pt was just admitted; pt is receiving ensure enlive w/ medpass. Pt denies difficulty chewing/swallowing. - Nutrition Diagnosis Problem / Etiology / Signs & Symptoms (PES):: Moderate pro/mary malnutrition in the context of likely social circumstance related to inadequate intake of pro/calories as evidenced by as evidenced by BMI 16.1, wt loss~3% x past 1-2 months and obvious muscle and fat wasting in the face, orbitals, clavicle, arms and legs. Evidence of Malnutrition Exists:: Yes Moderate PCM:: Social & Environmental circumstances - Nutrition Intervention Nutrition Prescription:: Estimated nutrition needs~4189-7192 kcal (30 kcal/Kg + 300 Kcal) and ~50-55 gm pro/Kg (1.3 gm pro/Kg). Estimated fluid needs~1600ml/day (40 ml/Kg). - Food / Nutrient Delivery Interventions Summary of nutrition intervention:: Continue Regular Diet as ordered. Continue 120ml ensure enlive 4 times per day w/ medpass as ordered provides 700 calories & 40 gm protein. Will offer magic cup BID w/ lunch and dinner as tolerated to provide 580 calories and 18 gm protein. Nutrition support ordered as / adjusted to:: none at this time Nutrition education provided?: No - MNT Monitoring Further MNT monitoring and evaluation required?: Yes MNT Follow-up in:: 3-5 days
[2020-09-30] MEDS: Potassium Chloride Oral Tablet 20 MEQ 60 MEQ PO (18:02)
[2020-09-30] MEDS: 0.9% Saline Lock 10 ML Syringe IV (18:02)
[2020-09-30] MEDS: 0.9% Normal Saline 1,000 ML 100 ML IV (18:02)
[2020-09-30 18:14] LABS: Magnesium 2.5 mg/dL (1.6-2.6); Thyroid Stim Hormone (TSH) 2.25 uIU/mL (0.358-3.74)
[2020-09-30 20:29] LABS: Bacteria 0 SEEN /hpf (None Seen); Mucous, Urine 0 SEEN /hpf (<or=2+); Red Blood Cells-Urine 0 SEEN /hpf (0-5); Squamous Epithelial Cells - UA 0 SEEN /hpf (5-10); White Blood Cells 0 SEEN /hpf (0-5)
[2020-09-30 20:57] LABS: Color, Urine Yellow (Yellow); Glucose, Dipstick Normal (Normal); Ketone-Dipstick Negative (Negative); Leukocyte Esterase-Dipstick Negative /ul (Negative); Nitrite-Dipstick Negative (Negative); Occult Blood-Urine Negative /ul (Negative); Protein-Dipstick Negative (Negative); Urine Bilirubin Dipstick Negative (Negative); Urine Clarity Clear (Clear); Urine Urobilinogen Normal (Normal)
[2020-10-01 07:33] VITALS: PULSE 64
[2020-10-01 07:48] LABS: Anion Gap 6 (5-15); BUN 10 mg/dL (7-18); Calcium,Total 8.6 mg/dL (8.5-10.1); Chloride 112 mmol/L (98-107); Creatinine, Serum 0.72 mg/dL (0.55-1.02); EST Glomerular Filtration Rate 84 mL/min (>60); Est Glom Filt Rate - Afr Amer 102 mL/min (>60); Estimated Creatinine Clearance 30.62 ml/min; Glucose 91 mg/dL (74-106); Potassium 4.4 mmol/L (3.5-5.1); Sodium Level 142 mmol/L (136-145)
[2020-10-01 10:00] VITALS: BP 151/88; PULSE 67; RESP 16; TEMP 36.4; O2SAT 97
[2020-10-01] MEDS: Lisinopril 10 MG Tablet PO (10:08)
[2020-10-01] MEDS: Enoxaparin 40 MG/0.4 ML Syringe SC (10:08)
[2020-10-01] MEDS: amLODIPine 10 MG Tablet PO (10:08)
[2020-10-01 10:55] LABS: Absolute Lymphocyte Count 1.25 X10^3/uL (0.83-4.51); Absolute Neutrophil Count 2.4 X10^3/uL (2.0-7.7); Basophil# 0.04 X10^3/uL; Basophil% 0.9 % (0-1); Eosinophil# 0.12 X10^3/uL; Eosinophils% 2.7 % (0-5); Hematocrit 38.1 % (37-47); Hemoglobin 12.4 g/dL (12.0-15.0); Lymphocyte # 1.25 X10^3/ul (0.83-4.51); Lymphocyte % 28.2 % (19-41); Mean Corp Hgb Conc 32.5 g/dL (32-36); Mean Corpuscular Hgb 27.8 pg (27.0-32.0); Mean Corpuscular Volume 85.4 fL (81-99); Mean Platelet Vol. 9.8 fl (6.2-12.0); Monocyte# 0.61 X10^3/uL; Monocyte% 13.7 % (0-10); NRBC Flagged by Analyzer 0 % (0-5); Neutrophil # 2.41 X10^3/uL (2.7-7.7); Neutrophil % 54.3 % (47-70); Platelet Count 222 K/mm3 (150-450); RBC Distribution Width CV 14.4 % (11.6-14.6); RBC Distribution Width SD 44.8 fl (35.1-43.9); Red Blood Count 4.46 M/mm3 (4.2-5.4); White Blood Count 4.4 K/mm3 (4.4-11.0)
--- NOTE | 2020-10-01 12:22 | PN.HOSP_ITS ---
Subjective Subjective: Feel in kitchen. No warning. Never happened before. Had been feeling well beforehand. Objective Data Objective Data Vital Signs: Vital Signs Temp Pulse Resp BP Pulse Ox 36.4 C L 67 16 151/88 H 97 10/01/20 10:00 10/01/20 10:00 10/01/20 10:00 10/01/20 10:00 10/01/20 10:00 Oxygen Delivery Method Room Air Weight: 39.9 kg Body Mass Index (BMI) 16.0 Intake & Output: Intake and Output for Last 24 Hours 09/29/20 09/30/20 10/01/20 23:59 23:59 23:59 Intake Total 775 / 775 405 / 405 Output Total 300 / 300 Balance 475 / 475 405 / 405 Lab / Micro Data Result Diagrams: 10/01/20 05:47 10/01/20 05:47 Labs: Laboratory Results - last 24 hr 09/30/20 09/30/20 09/30/20 17:31 19:50 20:15 WBC RBC Hgb Hct MCV MCH MCHC RDW Std Deviation RDW Coeff of Osbaldo Plt Count MPV Immature Gran % (Auto) Neut % (Auto) Lymph % (Auto) [place] % (Auto) Eos % (Auto) Baso % (Auto) Absolute Neuts (auto) Absolute Lymphs (auto) Nucleated RBC % Sodium Potassium Chloride Carbon Dioxide Anion Gap BUN Creatinine Estim Creat Clear Calc Est GFR (MDRD) Af Amer Est GFR (MDRD) Non-Af BUN/Creatinine Ratio Glucose Calcium Magnesium 2.5 Troponin I < 0.015 < 0.015 TSH 2.25 Urine Color Yellow Urine Clarity Clear Urine pH 7.0 Ur Specific [place] 1.010 Urine Protein Negative Urine Glucose (UA) Normal Urine Ketones Negative Urine Occult Blood Negative Urine Nitrite Negative Urine Bilirubin Negative Urine Urobilinogen Normal Ur Leukocyte Esterase Negative Urine RBC 0 SEEN Urine WBC 0 SEEN Ur Squamous Epith Cells 0 SEEN Urine Bacteria 0 SEEN Urine Mucus 0 SEEN 09/30/20 10/01/20 10/01/20 23:21 05:47 05:47 WBC 4.4 RBC 4.46 Hgb 12.4 Hct 38.1 MCV 85.4 MCH 27.8 MCHC 32.5 RDW Std Deviation 44.8 H RDW Coeff of Osbaldo 14.4 Plt Count 222 MPV 9.8 Immature Gran % (Auto) 0.200 Neut % (Auto) 54.3 Lymph % (Auto) 28.2 [place] % (Auto) 13.7 H Eos % (Auto) 2.7 Baso % (Auto) 0.9 Absolute Neuts (auto) 2.4 Absolute Lymphs (auto) 1.25 Nucleated RBC % 0 Sodium 142 Potassium 4.4 Chloride 112 H Carbon Dioxide 24.0 Anion Gap 6 BUN 10 Creatinine 0.72 Estim Creat Clear Calc 30.62 Est GFR (MDRD) Af Amer 102 Est GFR (MDRD) Non-Af 84 BUN/Creatinine Ratio 14.0 Glucose 91 Calcium 8.6 Magnesium Troponin I < 0.015 TSH Urine Color Urine Clarity Urine pH Ur Specific [place] Urine Protein Urine Glucose (UA) Urine Ketones Urine Occult Blood Urine Nitrite Urine Bilirubin Urine Urobilinogen Ur Leukocyte Esterase Urine RBC Urine WBC Ur Squamous Epith Cells Urine Bacteria Urine Mucus Radiography Diagnostic Testing: Radiology Impression Brain CT 09/30/20 11:29 IMPRESSION: Chronic involutional changes of the brain. Electronically Signed: Mohinder De La O MD at 13:03 EDT Tel , Service support , Chest X-Ray 09/30/20 13:30 IMPRESSION: Emphysema without pneumonia or atelectasis. Electronically Signed: Mohinder De La O MD at 14:09 EDT Tel , Service support , Physical Exam Const alert and oriented x3 HEENT HEENT Narrative: superficial abrasion on posterior occiput Head and Scalp: normocephalic Eyes PERRL and EOMs intact bilaterally Resp normal respiratory effort and no retractions Cardio regular rate, regular rhythm, S1 normal heart sound and S2 normal heart sound GI normal to inspection, nondistended, normoactive bowel sounds, soft to palpation and non-tender Extremity normal to inspection and full ROM Neuro oriented x3, CN's II-XII intact bilaterally, moves all extremities and no focal motor deficits Sensorium / Orientation: awake and alert Assessment & Plan Assessment/Plan (1) Syncope: Status: Acute Code(s): R55 - Syncope and collapse Plan: check echo unclear if related to HTN or mechanical fall with concussion (pt states that her floor is slippery) (2) Hypertensive urgency: Status: Acute Code(s): I16.0 - Hypertensive urgency Plan: stable on lisinopril Inpatient E&M: 74636 Subs Hosp L2
--- NOTE | 2020-10-01 15:44 | DS.PCM_ITS ---
Providers Date of Admission: 09/30/20 Primary Care Physician: Dr. Ron Dubose MD Reason For Visit: NEAR SYNCOPE & COLLAPSE,HEAD INJURY,BRADYCARDIA Diagnosis Discharge Diagnosis (1) Syncope: Status: Acute Code(s): R55 - Syncope and collapse Plan: unclear etiology (2) Hypertensive urgency: Status: Acute Code(s): I16.0 - Hypertensive urgency Plan: lisinopril 10mg/d Medications at Discharge Home Medications lisinopril 10 mg PO DAILY #30 tab 10/01/20 Hospital Course Procedures 2-D Echocardiogram ABG / Lab / Microbiology Data Result Diagrams: 10/01/20 05:47 10/01/20 05:47 Laboratory: Laboratory Results - last 24 hr 09/30/20 09/30/20 09/30/20 17:31 19:50 20:15 WBC RBC Hgb Hct MCV MCH MCHC RDW Std Deviation RDW Coeff of Osbaldo Plt Count MPV Immature Gran % (Auto) Neut % (Auto) Lymph % (Auto) [place] % (Auto) Eos % (Auto) Baso % (Auto) Absolute Neuts (auto) Absolute Lymphs (auto) Nucleated RBC % Sodium Potassium Chloride Carbon Dioxide Anion Gap BUN Creatinine Estim Creat Clear Calc Est GFR (MDRD) Af Amer Est GFR (MDRD) Non-Af BUN/Creatinine Ratio Glucose Calcium Magnesium 2.5 Troponin I < 0.015 < 0.015 TSH 2.25 Urine Color Yellow Urine Clarity Clear Urine pH 7.0 Ur Specific [place] 1.010 Urine Protein Negative Urine Glucose (UA) Normal Urine Ketones Negative Urine Occult Blood Negative Urine Nitrite Negative Urine Bilirubin Negative Urine Urobilinogen Normal Ur Leukocyte Esterase Negative Urine RBC 0 SEEN Urine WBC 0 SEEN Ur Squamous Epith Cells 0 SEEN Urine Bacteria 0 SEEN Urine Mucus 0 SEEN 09/30/20 10/01/20 10/01/20 23:21 05:47 05:47 WBC 4.4 RBC 4.46 Hgb 12.4 Hct 38.1 MCV 85.4 MCH 27.8 MCHC 32.5 RDW Std Deviation 44.8 H RDW Coeff of Osbaldo 14.4 Plt Count 222 MPV 9.8 Immature Gran % (Auto) 0.200 Neut % (Auto) 54.3 Lymph % (Auto) 28.2 [place] % (Auto) 13.7 H Eos % (Auto) 2.7 Baso % (Auto) 0.9 Absolute Neuts (auto) 2.4 Absolute Lymphs (auto) 1.25 Nucleated RBC % 0 Sodium 142 Potassium 4.4 Chloride 112 H Carbon Dioxide 24.0 Anion Gap 6 BUN 10 Creatinine 0.72 Estim Creat Clear Calc 30.62 Est GFR (MDRD) Af Amer 102 Est GFR (MDRD) Non-Af 84 BUN/Creatinine Ratio 14.0 Glucose 91 Calcium 8.6 Magnesium Troponin I < 0.015 TSH Urine Color Urine Clarity Urine pH Ur Specific [place] Urine Protein Urine Glucose (UA) Urine Ketones Urine Occult Blood Urine Nitrite Urine Bilirubin Urine Urobilinogen Ur Leukocyte Esterase Urine RBC Urine WBC Ur Squamous Epith Cells Urine Bacteria Urine Mucus Radiography Diagnostic Testing: Radiology Impression Echocardiogram 09/30/20 17:03 Interpretation Summary The study was technically difficult. Contrast injection was performed. Left ventricular systolic function is normal. The estimated ejection fraction is 60 %. Mild mitral valve prolapse. Trivial mitral valve insufficiency. Trivial tricuspid valve insufficiency. Mild focal aortic valve calcification. Right ventricular systolic pressure estimated to be 27 mmHg. No evidence for diastolic dysfunction. Bubble contrast study negative for right to left interatrial shunt. Ordering Physician: Pj White Referring Physician: Ron Dubose Performed By: Sourav Pollock RCS D/C Instructions Discharge Diet: No restrictions Meaningful Use Info Meaningful Use Diagnoses (Choose all that apply): None applicable Discharge Plan Admission Admit Date/Time: 09/30/20 16:11 Primary Reason for Your Visit: syncope Attending Provider: Pj White Primary Care Provider: Ron Dubose Discharge Orders/Prescriptions Prescriptions: New lisinopril 10 mg Tablet 10 mg PO DAILY Qty: 30 RF: 0 Referrals: Ron Dubose MD [Primary Care Provider] - In 1 Week Disposition Patient Disposition: Home, self care
[2020-10-01 15:54] VITALS: BP 150/87; PULSE 60; RESP 16; TEMP 36.4; O2SAT 99
== END 2020-10-01 15:44 | disposition home or self-care (01) ==
LOC: ED 12:42 → PCU 16:26
PROVIDERS: Admitting Provider Hospitalist; Emergency Provider Student in an Organized Health Care Education/Training Program; PCP Internal Medicine; Visit Provider Hospitalist
DX: R55 Syncope and collapse (principal); I16.0 Hypertensive urgency; S01.01XA Laceration without foreign body of scalp, initial encounter; W18.30XA Fall on same level, unspecified, initial encounter; Y93.9 Activity, unspecified; Y92.89 Other specified places as the place of occurrence of the external cause; I10 Essential (primary) hypertension; R00.1 Bradycardia, unspecified; F17.210 Nicotine dependence, cigarettes, uncomplicated; I08.3 Combined rheumatic disorders of mitral, aortic and tricuspid valves; Z79.899 Other long term (current) drug therapy; Z91.14 Patient's other noncompliance with medication regimen
CPT/HCPCS: 36415; 70450; 71045; 80048; 80053; 81001; 83735; 84443; 84484; 85025; 93005; 93306; 96360; 96361; 96372; 96375; 97162; 97802; 99218; 99285; 99406; J7030; Q9957; A4216; C8929; G0378

== ENCOUNTER → 2020-12-30 09:29 | Outpatient (CLI) | payer MEDICARE, OTHER, SELFPAY ==
[2020-12-30 08:29] VITALS: BMI 14.6
[2020-12-30 12:24] LABS: Absolute Lymphocyte Count 0.89 X10^3/uL (0.83-4.51); Absolute Neutrophil Count 4.2 X10^3/uL (2.0-7.7); Basophil# 0.05 X10^3/uL; Basophil% 0.9 % (0-1); Eosinophil# 0.04 X10^3/uL; Eosinophils% 0.7 % (0-5); Hematocrit 43.6 % (37-47); Hemoglobin 14.3 g/dL (12.0-15.0); Lymphocyte # 0.89 X10^3/ul (0.83-4.51); Lymphocyte % 15.3 % (19-41); Mean Corp Hgb Conc 32.8 g/dL (32-36); Mean Corpuscular Hgb 28.1 pg (27.0-32.0); Mean Corpuscular Volume 85.8 fL (81-99); Mean Platelet Vol. 10.1 fl (6.2-12.0); Monocyte# 0.61 X10^3/uL; Monocyte% 10.5 % (0-10); NRBC Flagged by Analyzer 0 % (0-5); Neutrophil % 72.4 % (47-70); Platelet Count 275 K/mm3 (150-450); RBC Distribution Width CV 14.6 % (11.6-14.6); RBC Distribution Width SD 46.4 fl (35.1-43.9); Red Blood Count 5.08 M/mm3 (4.2-5.4); White Blood Count 5.8 K/mm3 (4.4-11.0)
[2020-12-30 12:43] LABS: Vitamin B12 310 pg/mL (211-911); Vitamin D,25 Hydroxy 43.4 ng/mL
[2020-12-30 12:51] LABS: AST(SGOT) 22 U/L (15-37); Alanine Aminotransfer ALT/SGPT 25 U/L (13-56); Albumin, Serum 3.8 g/dL (3.2-5.0); Alkaline Phosphatase 54 U/L (45-117); Anion Gap 6 (5-15); BUN 14 mg/dL (7-18); BUN/Creat Ratio 14.5 RATIO (10-20); Calcium,Total 8.8 mg/dL (8.5-10.1); Chloride 109 mmol/L (98-107); Cholesterol 196 mg/dL (200); Creatinine, Serum 0.96 mg/dL (0.55-1.02); EST Glomerular Filtration Rate 60 mL/min (>60); Est Glom Filt Rate - Afr Amer 72 mL/min (>60); Glucose 90 mg/dL (74-106); High Density Lipoprotein 72 mg/dL; Potassium 3.2 mmol/L (3.5-5.1); Protein, Total 7.8 g/dL (6.4-8.2); Sodium Level 142 mmol/L (136-145); T4 Free Direct 1.26 ng/dL (0.76-1.46); Thyroid Stim Hormone (TSH) 1.37 uIU/mL (0.358-3.74); Triglycerides 156 mg/dL; Very Low Density Lipoprotein 31 mg/dL (5-40)
== END ==
PROVIDERS: PCP Internal Medicine; Referring Provider Internal Medicine; Visit Provider Internal Medicine
DX: I10 Essential (primary) hypertension (principal); M81.0 Age-related osteoporosis without current pathological fracture; R41.3 Other amnesia
CPT/HCPCS: 36415; 80053; 80061; 82306; 82607; 84439; 84443; 85025

== ENCOUNTER → 2021-02-03 09:48 | Outpatient (CLI) | payer MEDICARE, OTHER, SELFPAY ==
[2021-02-03 12:35] LABS: Anion Gap 7 (5-15); BUN 26 mg/dL (7-18); Calcium,Total 9.1 mg/dL (8.5-10.1); Chloride 109 mmol/L (98-107); EST Glomerular Filtration Rate 42 mL/min (>60); Est Glom Filt Rate - Afr Amer 51 mL/min (>60); Glucose 115 mg/dL (74-106); Potassium 3.7 mmol/L (3.5-5.1); Sodium Level 139 mmol/L (136-145)
== END ==
PROVIDERS: PCP Internal Medicine; Visit Provider Internal Medicine
DX: I10 Essential (primary) hypertension (principal)
CPT/HCPCS: 36415; 80048

== ENCOUNTER → 2021-02-04 12:57 | Outpatient (CLI) | payer MEDICARE, OTHER, SELFPAY ==
[2020-12-30 08:29] VITALS: BMI 14.6
--- NOTE | 2021-02-04 13:00 | BI_ITS ---
MAMMOGRAPHY - BILATERAL SCREENING 3-D TOMOSYNTHESIS REASON FOR EXAM: Female, 75 years old. Breast cancer screening PERTINENT HISTORY: No significant family history. TECHNIQUE: 2-D mammograms and 3-D Tomosynthesis of the breast (s) were performed. CAD was performed. COMPARISON: 10/26/2019 FINDINGS: The breast composition is Extermely dense tissue. Scattered benign calcifications are seen. No dense spiculated masses or suspicious microcalcifications are identified. No architectural distortion is identified. There is no skin thickening or retraction. Bilateral retropectoral silicone implants appear intact. BI/SCRN MAMM (CAD)W/LAVELL BILAT IMPRESSION: No mammographic signs of malignancy. Routine yearly mammograms recommended. ASSESSMENT CATEGORY: BIRADS Category 1: Negative. A letter regarding these results will be sent to the patient by the facility within 30 days. FOLLOW UP RECOMMENDATION: Yearly follow up mammogram recommended. (A) Approximately 10% of breast cancers are not detected by mammography. A normal mammogram should not delay biopsy of a clinically suspicious abnormality. Electronically Signed: Mohinder De La O MD at 17:24 EDT Tel , Service support ,
--- NOTE | 2021-02-04 13:03 | BD_ITS ---
STUDY: DUAL ENERGY X-RAY ABSORPTIOMETRY / DXA REASON FOR EXAM: Female, 75 years old. Osteoporosis TECHNIQUE: Bone Mineral Density (BMD) measurements of lumbar spine and bilateral hips were obtained. COMPARISON: Comparison is made with prior study dated 10/13/2018. FINDINGS: Lumbar Spine (L1-L4): g/cm2 (0.606) / T-score (-4.0) / Z-score (-1.6) Findings are suggestive of osteoporosis with a high fracture risk. Left Femur Total: g/cm2 (0.647) / T-score (-2.4) / Z-score (-0.6) Left Femoral Neck: g/cm2 (0.531) / T-score (-2.9) / Z-score (-0.8) Right Femur Total: g/cm2 (0.617) / T-score (-2.7) / Z-score (-0.9) Right Femoral Neck: g/cm2 (0.583) / T-score (-2.4) / Z-score (by 0.3) The T-Scores on the most recent prior examination were: Lumbar Spine (L1-L4): There has been worsening of bone density since the previous examination. Left Femur Total: which represents a worsening of 6.8%. Right Femur Total: which represents a worsening of 10.3%. BD/Dexa Bone Density Study IMPRESSION: The patient is considered osteoporotic as outlined below according to World [employer] Organization (WHO) criteria with a high fracture risk. There has been worsening of bone density since the previous examination. Reference Information: The T-score is the number of standard deviations above or below the standard which is normal for young adults at their peak bone mineral density. The World Health Organization (WHO) interprets the T-scores as follows: Above -1 Normal bone density Between -1 and -2.5 Osteopenia Equal to / or below -2.5 Osteoporosis As a practical clinical guideline, osteopenia may be graded as follows: Mild -1 through -1.5 Moderate -1.6 through -2.0 Severe -2.1 through -2.4 The Z-score is the number of standard deviations above or below age-matched controls. A Z-score of less than -1.5 would be considered abnormal. References: 1. NIH Osteoporosis and Related Bone Diseases www osteo.org 2. International Society for Clinical Densitometry www iscd.org 3. National Osteoporosis Foundation www nof.org Electronically Signed: Alberto Chopra MD at 13:12 EDT , Service support ,
== END ==
PROVIDERS: PCP Internal Medicine; Visit Provider Internal Medicine
DX: Z12.31 Encounter for screening mammogram for malignant neoplasm of breast (principal); M81.0 Age-related osteoporosis without current pathological fracture
CPT/HCPCS: 77063; 77067; 77080

== ENCOUNTER → 2021-02-26 08:53 | Outpatient (CLI) | payer MEDICARE, OTHER, SELFPAY ==
[2021-02-26 10:56] LABS: Anion Gap 7 (5-15); BUN 9 mg/dL (7-18); BUN/Creat Ratio 10.5 RATIO (10-20); Calcium,Total 8.7 mg/dL (8.5-10.1); Chloride 108 mmol/L (98-107); Creatinine, Serum 0.85 mg/dL (0.55-1.02); EST Glomerular Filtration Rate 69 mL/min (>60); Est Glom Filt Rate - Afr Amer 83 mL/min (>60); Glucose 96 mg/dL (74-106); Potassium 3.3 mmol/L (3.5-5.1); Sodium Level 142 mmol/L (136-145)
[2021-03-03 09:18] LABS: Vitamin B1, Thiamine 87.5 nmol/L (66.5-200.0)
== END ==
PROVIDERS: PCP Internal Medicine; Referring Provider Psychiatry & Neurology Neurology; Visit Provider Psychiatry & Neurology Neurology
DX: F03.90 Unspecified dementia, unspecified severity, without behavioral disturbance, psychotic disturbance, mood disturbance, and anxiety (principal)
CPT/HCPCS: 36415; 80048; 82746; 84425

== ENCOUNTER → 2021-03-10 12:33 | Outpatient (CLI) | payer MEDICARE, OTHER, SELFPAY ==
--- NOTE | 2021-03-10 12:35 | MRI_ITS ---
EXAM: MR HEAD WITHOUT AND WITH INTRAVENOUS CONTRAST CLINICAL INDICATION: Dementia TECHNIQUE: Multiplanar and multisequence MR images of the brain were obtained without and with intravenous contrast. This report was created using Hemote[employer] report generation technology. CONTRAST: IV 8mL Dotarem COMPARISON: CT 09/30/2020 FINDINGS: BRAIN AND EXTRA-AXIAL SPACES: Chronic microvascular ischemic changes. No intra- or extra-axial hemorrhage. No intracranial mass or mass effect. Posterior fossa structures are unremarkable. Ventricles are appropriate for age. No hydrocephalus. Basal cisterns are patent. SELLA: Unremarkable. Normal sella turcica, pituitary gland, infundibular stalk, optic chiasm and hypothalamus. AUDITORY SYSTEM: Unremarkable. The internal auditory canals are patent. BONES/JOINTS: Unremarkable. No discrete lytic or blastic abnormalities. SINUSES: Unremarkable as visualized. Clear. MASTOID AIR CELLS: Unremarkable as visualized. Clear. ORBITS: Unremarkable as visualized. Both globes, extraocular muscles, optic nerves and retrobulbar fat appear unremarkable. VASCULATURE: Unremarkable as visualized. Normal flow voids in the major intracranial circulation. OTHER FINDINGS: There are no enhancing lesions. MRI/Brain W/WO Contrast IMPRESSION: Chronic microvascular ischemic changes. Electronically Signed: Jw Orozco MD at 14:31 EDT , Service support ,
== END ==
PROVIDERS: PCP Internal Medicine; Visit Provider Psychiatry & Neurology Neurology
DX: F03.90 Unspecified dementia, unspecified severity, without behavioral disturbance, psychotic disturbance, mood disturbance, and anxiety (principal)
CPT/HCPCS: 70553; A9575

== ENCOUNTER → 2021-03-24 13:48 | Outpatient (CLI) | payer MEDICARE, OTHER, SELFPAY ==
[2021-03-24 15:50] LABS: Potassium 3.3 mmol/L (3.5-5.1)
== END ==
PROVIDERS: PCP Internal Medicine; Referring Provider Psychiatry & Neurology Neurology; Visit Provider Psychiatry & Neurology Neurology
DX: E87.6 Hypokalemia (principal)
CPT/HCPCS: 36415; 84132

== ENCOUNTER → 2021-05-05 10:27 | Outpatient (CLI) | payer MEDICARE, OTHER, SELFPAY ==
[2021-05-05 12:37] LABS: Anion Gap 5 (5-15); BUN 13 mg/dL (7-18); Calcium,Total 8.3 mg/dL (8.5-10.1); Chloride 108 mmol/L (98-107); Creatinine, Serum 0.87 mg/dL (0.55-1.02); EST Glomerular Filtration Rate 68 mL/min (>60); Est Glom Filt Rate - Afr Amer 82 mL/min (>60); Glucose 93 mg/dL (74-106); Potassium 3.5 mmol/L (3.5-5.1); Sodium Level 141 mmol/L (136-145)
== END ==
PROVIDERS: PCP Internal Medicine; Referring Provider Internal Medicine; Visit Provider Internal Medicine
DX: I10 Essential (primary) hypertension (principal)
CPT/HCPCS: 36415; 80048

== ENCOUNTER → 2021-05-15 10:35 | Outpatient (CLI) | payer MEDICARE, OTHER, SELFPAY ==
--- NOTE | 2021-05-15 15:13 | PFTCOMP ---
COMPLETE PULMONARY FUNCTION TEST INTERPRETATION Brief HPI: Patient is a 75 year old female, currently under the care of Dr. Dubose, who presents to [facility] for complete pulmonary function tests secondary to diagnosis of dyspnea. Respiratory therapist reports good effort and reproducible results. Interpretation: Forced expiration spirometry shows no large airways obstructive ventilatory defect with an FEV1 of 93% predicted. There is no significant bronchodilator response by strict ATS criteria. Spirograms are of poor quality, showing exhalation for only 1-1/2 to 4 seconds and plateau normally. The respiratory flow volume loop shows a normal pattern. Lung volumes by body plethysmography show an elevated total lung capacity at 6.12 L, 140% predicted. FRC and RV are elevated out of proportion. Lung volume measurements are consistent with hyperinflation and air-trapping. Diffusion capacity by carbon monoxide is normal at 90% predicted. The airway resistance is normal. No previous pulmonary function tests were available for review. Impression: Isolated air trapping with hyperinflation of unclear etiology, but otherwise normal spirometry.
== END ==
PROVIDERS: PCP Internal Medicine; Referring Provider Internal Medicine; Visit Provider Internal Medicine
DX: R06.02 Shortness of breath (principal); Z72.0 Tobacco use
CPT/HCPCS: 94060; 94726; 94729

== ENCOUNTER 2021-07-13 10:52 | Emergency (ER) | payer MEDICARE, OTHER, SELFPAY ==
[2021-07-13 10:55] VITALS: BP 105/53; PULSE 71; RESP 17; TEMP 36.7; O2SAT 97; BMI 14.6
--- NOTE | 2021-07-13 11:19 | CT_ITS ---
STUDY: CT BRAIN WITHOUT CONTRAST REASON FOR EXAM: Female, 75 years old. Left-sided weakness. RADIATION DOSAGE (If Supplied By Facility): CTDIvol = ( 44.99 ) mGy, DLP = ( 779.24 ) mGycm TECHNIQUE: Transaxial CT imaging of the brain was performed without administration of intravenous contrast material. Individualized dose optimization techniques were used for this CT. COMPARISON: No relevant priors. FINDINGS: Normal soft tissue structures. Normal calvarium. There is mild cerebral atrophy with widening of the extra-axial spaces and ventricular dilatation. There are areas of decreased attenuation within the white matter tracts of the supratentorial brain, consistent with microvascular disease changes. 4 Normal brainstem. Normal cerebellum. There is no intracranial hemorrhage. There are no findings of an acute ischemic infarction. Normal visualized paranasal sinuses. CT/Brain/Head without Contrast IMPRESSION: Chronic involutional changes without evidence of acute intracranial or calvarial abnormality. Electronically Signed: Ash Myles DO at 12:27 EST ,
--- NOTE | 2021-07-13 11:20 | EKG12_ITS ---
Test Reason : WEAKNESS Blood Pressure : / mmHG Vent. Rate : 050 BPM Atrial Rate : 050 BPM P-R Int : 142 ms QRS Dur : 086 ms QT Int : 462 ms P-R-T Axes : 063 074 080 degrees QTc Int : 421 ms Sinus bradycardia Otherwise normal ECG Confirmed by ABEBE DIAZ, BRAN ([id number]), video tape editor AURELIA SUH ([id number]) on 07/14/2021 11:07:45 AM Referred By: TRUE Confirmed By:BRAN LOMAS MD
--- NOTE | 2021-07-13 11:21 | EDS_ITS ---
HPI History of Present Illness Chief Complaint: Weakness Detail of Chief Complaint: Weakness with concern for possible stroke Informant: patient and family Narrative Narrative: Patient presents to the emergency department with episode of weakness this morning as she was being ambulated by staff. Patient apparently complained of not feeling well and she was off balance and her left side gave out. Patient apparently had a history of stroke in September of last year. Patient has history of dementia and is a poor historian therefore a lot of the history comes from the patient sister who is with her. Patient apparently at the time that she was being ambulated also was noted to have a low blood sugar and she received orange juice but is unclear how low her blood sugar was. Patient is not a known diabetic. Patient currently has no complaints. [facility] Medical History (Updated 07/13/21 @ 12:[address] Jessy Miguel, ) Alzheimer's dementia Breast anomaly Cerebrovascular disease Decreased hearing Dementia Memory impairment Rash Shortness of breath Tobacco abuse Home Medications mecobalamin (vitamin B12) 1,000 mcg disintegrating tablet,sublingual 1,000 mcg SUBLINGUAL DAILY #90 tab 12/30/20 [Rx Last Taken Unknown] lisinopril 10 mg tablet 10 mg PO DAILY #90 tab 02/03/21 [Rx Last Taken Unknown] albuterol sulfate 90 mcg/actuation aerosol inhaler 2 puff INHALATION Q6H PRN #8.5 g 05/05/21 [Rx Last Taken Unknown] aspirin 81 mg tablet,delayed release 81 mg PO DAILY 05/26/21 [History Last Taken Unknown] donepezil 10 mg tablet 10 mg PO QHS #30 tab 05/26/21 [Rx Last Taken Unknown] memantine 10 mg tablet 10 mg PO BID #60 tab 05/26/21 [Rx Last Taken Unknown] acetaminophen 650 mg PO Q4H PRN 07/13/21 [History Last Taken Unknown] loperamide 2 mg PO Q4H PRN 07/13/21 [History Last Taken Unknown] magnesium hydroxide [Milk of Magnesia] 30 ml PO DAILY PRN 07/13/21 [History Last Taken Unknown] Allergy/AdvReac Type Severity Reaction Status Date / Time No Known Allergies Allergy Verified 07/13/21 10:55 Family History Father Diabetes Myocardial infarction, Onset Age: 51 Uncle Diabetes Brother Myocardial infarction, Onset Age: 62 Diabetes Mother Parkinson disease Hypertension Sister Hypertension Surgical History No pertinent past surgical history Social History Smoking Status: Light Smoker (<10/day) Tobacco: How many years used: 50 Electronic Cigarette Use: not used second hand exposure: No alcohol intake: never substance use type: does not use what type of physical activity do you participate in: aerobics ROS ROS ED Constitutional Constitutional ED: Reports systems reviewed and no addt'l complaints, except as documented; Denies body ache(s), change in weight or chills Eyes Eyes: Denies acute decrease in peripheral vision, change in vision, double vision or loss of vision ENT ENT ED: Reports none; Denies ear pain, lip swelling, loss taste/smell, neck pain, otalgia or sore throat Cardiovascular Cardiovascular: Reports none; Denies abdominal pain, chest pain with activity, leg edema, lightheadedness, palpitations, rapid heart rate or syncope Respiratory/Chest Respiratory/Chest: Reports none; Denies change in mental status, dry cough, dyspnea, hemoptysis, shortness of breath at rest or shortness of breath with exertion Gastrointestinal Gastrointestinal: Reports none; Denies abdominal pain, change in stool character, diarrhea, hematemesis, hematochezia, melena, rectal bleeding or vomiting Genitourinary Genitourinary ED: Reports none; Denies abdominal discomfort, anuria, dysuria, genital pain or polyuria Musculoskeletal Musculoskeletal: Reports none; Denies arthralgias, back pain, difficulty walking, extremity pain, muscle weakness or myalgias Integumentary Reports none; Denies abscess or rash Neurologic Neurologic: Reports none, weakness and other Details: Off balance ; Denies abnormal gait, confusion, focal weakness, frequent falls, headache(s), loss of vision, numbness, paresthesias, radicular pain or vertigo Psychiatric Psychiatric: Reports systems reviewed and no addt'l complaints, except as documented and none; Denies behavioral changes, confusion, difficulty concentrating, hallucinations, suicidal ideation, tactile hallucinations or visual hallucinations Endocrine Endocrinology: Denies none, cold intolerance, excessive sweating, fatigue or heat intolerance Hematologic/Lymphatic Hematologic/Lymphatic: Reports none; Denies anemia, easy bleeding or easy bruising Allergic/Immunologic Allergic/Immunologic ED: Denies as per HPI, none, lip swelling, mouth swelling, throat swelling, tongue swelling or hives EXAM Physical Exam Const Vital Signs: 07/13/21 10:55 07/13/21 11:07 Temperature 98.0 F Temperature Source Temporal Pulse Rate 71 Respiratory Rate 17 Respiratory Effort Normal Non-Labored Respiratory Pattern Normal Blood Pressure 105/53 L Blood Pressure Mean 70 Pulse Ox 97 Oxygen Delivery Method Room Air Positive well nourished and well developed General Appearance ED: well developed and NAD HEENT Reports TM's clear and moist mucous membranes normocephalic and atraumatic; Negative for trauma or tenderness Tympanic Membrane ED: Yes TM's clear Eyes PERRL and EOMs intact bilaterally General Eye ED: Negative for pale conjunctiva or scleral icterus Neck no lymphadenopathy, supple and no JVD General: Negative for tenderness Chest Wall inspection of chest normal and palpation of chest normal Chest: Negative for tenderness Resp normal respiratory effort and clear to auscultation bilaterally Effort and Inspection: Negative for respiratory distress or pain with movement Auscultation: Negative for rhonchi, wheezes or diminished lung sounds Cardio regular rate, regular rhythm, S1 normal heart sound, S2 normal heart sound and no murmurs Peripheral Pulses: pulses 2+ throughout GI normal to inspection, nondistended, normoactive bowel sounds, soft to palpation, non-tender, non-distended and no masses Back/Spine no CVA tenderness and no thoracic nor lumbar tenderness Extremity normal to inspection General Extremety ED: Negative for edema General Extremity: Negative for edema Neuro CN's II-XII intact bilaterally, no sensory deficits noted and gait normal Neuro Narrative: NIH stroke scale is a 0 Sensorium / Orientation: awake, alert, oriented to person, oriented to place and oriented to time Motor Exam: strength 5/5 throughout and strength abnormal Psych mental status grossly normal Skin no rashes or lesions noted and no wounds MDM MDM MDM Narrative Medical decision making narrative: IV line established on arrival. Lab work unremarkable. Urinalysis was normal. CT brain showed nothing acute. Patient has no focal deficits on exam. Etiology of her weakness is unclear. I am not convinced the patient had a stroke. I did review her medical record and she had an MRI of her brain and March 2021 which is showed chronic microvascular changes otherwise nothing acute. At this point I feel patient can be discharged back to the long term. I will attempt to contact patient's primary care physician to discuss. Patient ambulated to the bathroom without assistance and did well. Lab Data Attestation: I reviewed the patient's lab results. Labs: Laboratory Results - last 24 hr 07/13/21 07/13/21 07/13/21 12:00 12:05 12:05 WBC 8.5 RBC 5.20 Hgb 14.7 Hct 44.8 MCV 86.2 MCH 28.3 MCHC 32.8 RDW Std Deviation 46.2 H RDW Coeff of Osbaldo 14.6 Plt Count 264 MPV 10.1 Immature Gran % (Auto) 0.500 Neut % (Auto) 72.5 H Lymph % (Auto) 15.2 L [place] % (Auto) 9.8 Eos % (Auto) 1.4 Baso % (Auto) 0.6 Absolute Neuts (auto) 6.2 Absolute Lymphs (auto) 1.29 Nucleated RBC % 0 Sodium 138 Potassium 4.9 Chloride 104 Carbon Dioxide 29.0 Anion Gap 5 BUN 17 Creatinine 1.04 H Estim Creat Clear Calc 26.77 Est GFR (MDRD) Af Amer 66 Est GFR (MDRD) Non-Af 55 L BUN/Creatinine Ratio 16.3 Glucose 87 Calcium 9.0 Troponin I High Sens 5 Urine Color Yellow Urine Clarity Clear Urine pH 6.5 Ur Specific [place] 1.010 Urine Protein 15 H Urine Glucose (UA) Normal Urine Ketones Negative Urine Occult Blood Negative Urine Nitrite Negative Urine Bilirubin Negative Urine Urobilinogen Normal Ur Leukocyte Esterase Negative Urine RBC 0 SEEN Urine WBC 0 SEEN Ur Squamous Epith Cells 0 SEEN Urine Bacteria 0 SEEN Urine Mucus 0 SEEN Radiography Diagnostic Testing: Clinical Impression(s) from Imaging Studies Brain CT 07/13/21 11:19 IMPRESSION: Chronic involutional changes without evidence of acute intracranial or calvarial abnormality. Electronically Signed: Ash Myles DO at 12:27 EST Reading Location ID and State: [address] [place] [address] Tel [phone], Service support , EKG Initial EKG: Attestation: I personally reviewed and interpreted this EKG as follows: Comments: Sinus rhythm with ventricular rate of 50 bpm with no acute ST segment changes Prior EKG tracings: available for review Prior: Changed Discharge Plan Triage Chief Complaint: Weakness ED Provider: Jessy Miguel Dx/Rx/DC Orders Clinical Impression: Weakness Instructions: ED Weakness (Uncertain Cause) Prescriptions: No Action lisinopril 10 mg tablet 10 mg PO DAILY Qty: 90 RF: 3 albuterol sulfate 90 mcg/actuation HFA aerosol inhaler 2 puff inhalation Q6H PRN (Reason: shortness of breath or wheezing) Qty: 8.5 RF: 2 memantine 10 mg tablet 10 mg PO BID Qty: 60 RF: 3 donepezil 10 mg tablet 10 mg PO QHS Qty: 30 RF: 3 aspirin 81 mg tablet,delayed release (DR/EC) 81 mg PO DAILY RF: 0 loperamide 2 mg Capsule 2 mg PO Q4H PRN (Reason: Diarrhea) RF: 0 magnesium hydroxide [Milk of Magnesia] 400 mg/5 mL Suspension 30 ml PO DAILY PRN (Reason: Constipation) RF: 0 acetaminophen 325 mg Capsule 650 mg PO Q4H PRN (Reason: pain/fever) RF: 0 mecobalamin (vitamin B12) 1,000 mcg tablet,disintegrating 1,000 mcg sublingual DAILY Qty: 90 RF: 2 Primary Care Provider: Ron Dubose Referrals: Ron Dubose MD [Primary Care Provider] - 3-5 Days Disposition Disposition: Home, Self Care
[2021-07-13 12:06] LABS: Bacteria 0 SEEN /hpf (None Seen); Mucous, Urine 0 SEEN /hpf (<or=2+); Red Blood Cells-Urine 0 SEEN /hpf (0-5); Squamous Epithelial Cells - UA 0 SEEN /hpf (5-10); White Blood Cells 0 SEEN /hpf (0-5)
[2021-07-13 12:07] LABS: Color, Urine Yellow (Yellow); Glucose, Dipstick Normal (Normal); Ketone-Dipstick Negative (Negative); Leukocyte Esterase-Dipstick Negative /ul (Negative); Nitrite-Dipstick Negative (Negative); Occult Blood-Urine Negative /ul (Negative); Protein-Dipstick 15 mg/dl (Negative); Urine Bilirubin Dipstick Negative (Negative); Urine Clarity Clear (Clear); Urine Urobilinogen Normal (Normal); Urine pH 6.5 (5.0 - 8.0)
[2021-07-13 12:16] LABS: Absolute Lymphocyte Count 1.29 X10^3/uL (0.83-4.51); Absolute Neutrophil Count 6.2 X10^3/uL (2.0-7.7); Basophil# 0.05 X10^3/uL; Basophil% 0.6 % (0-1); Eosinophil# 0.12 X10^3/uL; Eosinophils% 1.4 % (0-5); Hematocrit 44.8 % (37-47); Hemoglobin 14.7 g/dL (12.0-15.0); Lymphocyte # 1.29 X10^3/ul (0.83-4.51); Lymphocyte % 15.2 % (19-41); Mean Corp Hgb Conc 32.8 g/dL (32-36); Mean Corpuscular Hgb 28.3 pg (27.0-32.0); Mean Corpuscular Volume 86.2 fL (81-99); Mean Platelet Vol. 10.1 fl (6.2-12.0); Monocyte# 0.83 X10^3/uL; Monocyte% 9.8 % (0-10); NRBC Flagged by Analyzer 0 % (0-5); Neutrophil # 6.17 X10^3/uL (2.7-7.7); Neutrophil % 72.5 % (47-70); Platelet Count 264 K/mm3 (150-450); RBC Distribution Width CV 14.6 % (11.6-14.6); RBC Distribution Width SD 46.2 fl (35.1-43.9); White Blood Count 8.5 K/mm3 (4.4-11.0)
[2021-07-13 12:33] LABS: Anion Gap 5 (5-15); BUN 17 mg/dL (7-18); BUN/Creat Ratio 16.3 RATIO (10-20); Chloride 104 mmol/L (98-107); Creatinine, Serum 1.04 mg/dL (0.55-1.02); EST Glomerular Filtration Rate 55 mL/min (>60); Est Glom Filt Rate - Afr Amer 66 mL/min (>60); Estimated Creatinine Clearance 26.77 ml/min; Glucose 87 mg/dL (74-106); Potassium 4.9 mmol/L (3.5-5.1); Sodium Level 138 mmol/L (136-145); Troponin-I HS 5 pg/mL (3.0-54.0)
[2021-07-13 13:01] VITALS: BP 156/82; PULSE 56; RESP 16
== END 2021-07-13 13:13 | disposition home or self-care (01) ==
PROVIDERS: Emergency Provider Emergency Medicine; PCP Internal Medicine; Visit Provider Emergency Medicine
DX: R53.1 Weakness (principal); F03.90 Unspecified dementia, unspecified severity, without behavioral disturbance, psychotic disturbance, mood disturbance, and anxiety; F17.200 Nicotine dependence, unspecified, uncomplicated; Z86.73 Personal history of transient ischemic attack (TIA), and cerebral infarction without residual deficits
CPT/HCPCS: 70450; 80048; 81001; 84484; 85025; 93005; 96360; 96361; 99284; A4216

== ENCOUNTER 2021-08-28 11:19 | Outpatient (CLI) | payer MEDICARE, OTHER, SELFPAY ==
--- NOTE | 2021-08-28 11:23 | RAD_ITS ---
STUDY: X-RAY - LUMBAR SPINE REASON FOR EXAM: Female, 76 years old. R foot drop; R leg numbness TECHNIQUE: 2 view(s) of the lumbar spine were obtained. COMPARISON: None FINDINGS: Normal lumbar lordosis. Mild dextroscoliosis centered at L4. There is a normal alignment of the vertebrae. Normal vertebral bodies and endplates. Normal disc space heights. The soft tissue structures are unremarkable. RAD/Lumbar Spine 2 or 3 Views IMPRESSION: Mild dextroscoliosis. Electronically Signed: Mohinder De La O MD at 12:15 EDT ,
== END 2021-08-28 23:59 | disposition home or self-care (01) ==
LOC: MTRAD 11:22
PROVIDERS: PCP Family Medicine; Referring Provider Nurse Practitioner Family; Visit Provider Nurse Practitioner Family
DX: M21.371 Foot drop, right foot (principal); R29.898 Other symptoms and signs involving the musculoskeletal system; R20.0 Anesthesia of skin
CPT/HCPCS: 72100

== ENCOUNTER → 2021-10-22 | Outpatient (CLI) | payer MEDICARE, OTHER, SELFPAY ==
--- NOTE | 2021-10-22 15:41 | NEURO ---
NCS and/or EMG Patient Report Ordering Doctor: Cyndi Ramirez NP DATE OF SERVICE: 10/22/21 Nuria presents for electrodiagnostic testing of the right lower limb. She reports right-sided calf pain and tightness. Electrodiagnostic findings: Right peroneal motor nerve demonstrates normal distal latency with reduced amplitude and conduction velocity. Normal right tibial motor response. Normal right superficial peroneal and right medial plantar response. Borderline prolonged right sural latency. H reflex is prolonged bilaterally. On needle EMG, decreased recruitment pattern noted in the right anterior tibialis. Electrodiagnostic impression: This is an abnormal study in the right lower limb. 1. 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 2. There is no electrodiagnostic evidence for sensory neuropathy. 3. There is no electrodiagnostic evidence for lumbosacral radiculopathy.
== END | disposition home or self-care (01) ==
LOC: PSN 06:16
PROVIDERS: PCP Family Medicine; Referring Provider Nurse Practitioner Family; Visit Provider Nurse Practitioner Family
DX: R20.0 Anesthesia of skin (principal); M21.371 Foot drop, right foot; R29.898 Other symptoms and signs involving the musculoskeletal system
CPT/HCPCS: 95886; 95910

== ENCOUNTER → 2022-03-13 | Outpatient (CLI) | payer MEDICARE, OTHER, SELFPAY ==
--- NOTE | 2022-03-13 09:40 | CDU_ITS ---
Reason For Study: Bilateral Carotid Bruits Rt. Velocities/BP Lt. Velocities/BP Prox CCA 66/8 cm/sec. Prox CCA 80/12 cm/sec. Mid CCA 78/5 cm/sec. Mid CCA 94/18 cm/sec. Dist CCA 52/8 cm/sec. Dist CCA 84/14 cm/sec. Prox ICA 267/50 cm/sec. Prox ICA 95/22 cm/sec. Mid ICA 257/38 cm/sec. Mid ICA 99/22 cm/sec. Dist ICA 133/34 cm/sec. Dist ICA 158/30 cm/sec. Rt. ICA/CCA = 3.4. Lt. ICA/CCA = 1.7. Prox ECA 89/9 cm/sec. Prox ECA 118/8 cm/sec. Rt. Vert. 90/17 cm/sec. Lt. Vert. 75/12 cm/sec. Right Extracranial There is heterogeneous, irregular atherosclerotic plaque noted in the right common carotid artery. There is heterogeneous, irregular atherosclerotic plaque noted in the right internal carotid artery. There is heterogeneous, irregular atherosclerotic plaque noted in the right external carotid artery. Antegrade flow is noted in the right vertebral artery. Left Extracranial There is heterogeneous, irregular atherosclerotic plaque noted in the left common carotid artery. There is heterogeneous, irregular atherosclerotic plaque noted in the left internal carotid artery. There is heterogeneous, irregular atherosclerotic plaque noted in the left external carotid artery. Antegrade flow is noted in the left vertebral artery. Procedure Carotid Duplex [id number]. This is a Carotid Duplex examination using B-mode, color flow and specral Doppler. Prelim given to Melyssa at Dr. Park's office. Exam performed in department. VL/Carotid Duplex Ultrasound Interpretation Summary Severe (>70%) stenosis right extracranial internal carotid. Moderate (50-69%) stenosis left extracranial internal carotid. Patent and antegrade vertebrals bilaterally. Ordering Physician: Tristan Rubio Referring Physician: Skip Park Performed By: Janelle Soto, WATSON, RVT
== END | disposition home or self-care (01) ==
LOC: CVS 09:40
PROVIDERS: PCP Family Medicine; Referring Provider Psychiatry & Neurology Neurology; Visit Provider Psychiatry & Neurology Neurology
DX: I65.23 Occlusion and stenosis of bilateral carotid arteries (principal); R09.89 Other specified symptoms and signs involving the circulatory and respiratory systems
CPT/HCPCS: 93880

== ENCOUNTER → 2022-07-15 | Outpatient (CLI) | payer MEDICARE, OTHER, SELFPAY ==
[2022-07-15 10:37] LABS: AST(SGOT) 15 U/L (15-37); Alanine Aminotransfer ALT/SGPT 20 U/L (13-56); Albumin, Serum 3.7 g/dL (3.2-5.0); Alkaline Phosphatase 65 U/L (45-117); Bilirubin, Direct 0.13 mg/dL (0.00-0.30); Cholesterol 155 mg/dL (200); Globulin 3.9 g/dL (2.2-4.2); High Density Lipoprotein 75 mg/dL; Protein, Total 7.6 g/dL (6.4-8.2); Triglycerides 132 mg/dL; Very Low Density Lipoprotein 26 mg/dL (5-40)
== END | disposition home or self-care (01) ==
LOC: MTLAB 08:27
PROVIDERS: PCP Family Medicine; Referring Provider Psychiatry & Neurology Neurology; Visit Provider Psychiatry & Neurology Neurology
DX: I65.23 Occlusion and stenosis of bilateral carotid arteries (principal); I10 Essential (primary) hypertension
CPT/HCPCS: 36415; 80061; 80076

== ENCOUNTER → 2023-01-19 | Outpatient (CLI) | payer MEDICARE, OTHER, SELFPAY ==
[2023-01-19 10:07] LABS: Hemoglobin 13.1 g/dL (12.0-15.0); Mean Corp Hgb Conc 31.2 g/dL (32-36); Mean Corpuscular Hgb 28.1 pg (27.0-32.0); Mean Corpuscular Volume 90.1 fL (81-99); Mean Platelet Vol. 11.1 fl (6.2-12.0); Platelet Count 244 K/mm3 (150-450); RBC Distribution Width CV 13.7 % (11.6-14.6); RBC Distribution Width SD 44.8 fl (35.1-43.9); Red Blood Count 4.66 M/mm3 (4.2-5.4); White Blood Count 7.1 K/mm3 (4.4-11.0)
[2023-01-19 10:31] LABS: Vitamin B12 1881 pg/mL (211-911)
[2023-01-19 10:42] LABS: ALB/GLOB Ratio 0.9 RATIO (0.9-2.4); AST(SGOT) 17 U/L (15-37); Alanine Aminotransfer ALT/SGPT 31 U/L (13-56); Albumin, Serum 3.5 g/dL (3.2-5.0); Alkaline Phosphatase 85 U/L (45-117); Anion Gap 6 (5-15); BUN 14 mg/dL (7-18); BUN/Creat Ratio 13.7 RATIO (10-20); Calcium,Total 8.8 mg/dL (8.5-10.1); Chloride 110 mmol/L (98-107); Cholesterol 149 mg/dL (200); Creatinine, Serum 1.02 mg/dL (0.55-1.02); EST Glomerular Filtration Rate 56 mL/min (>60); Est Glom Filt Rate - Afr Amer 68 mL/min (>60); Globulin 3.9 g/dL (2.2-4.2); Glucose 100 mg/dL (74-106); High Density Lipoprotein 74 mg/dL; Protein, Total 7.4 g/dL (6.4-8.2); Sodium Level 143 mmol/L (136-145); Thyroid Stim Hormone (TSH) 1.64 uIU/mL (0.358-3.74); Triglycerides 121 mg/dL; Very Low Density Lipoprotein 24 mg/dL (5-40)
[2023-01-22 11:09] LABS: Vitamin B1, Thiamine 100.6 nmol/L (66.5-200.0)
== END | disposition home or self-care (01) ==
LOC: MTLAB 08:10
PROVIDERS: PCP Family Medicine; Referring Provider Psychiatry & Neurology Neurology; Visit Provider Psychiatry & Neurology Neurology
DX: G30.1 Alzheimer's disease with late onset (principal); F02.80 Dementia in other diseases classified elsewhere, unspecified severity, without behavioral disturbance, psychotic disturbance, mood disturbance, and anxiety; I65.23 Occlusion and stenosis of bilateral carotid arteries
CPT/HCPCS: 36415; 80053; 80061; 82607; 82746; 84425; 84443; 85027

== ENCOUNTER → 2023-08-02 | Outpatient (CLI) | payer MEDICARE, OTHER, SELFPAY ==
--- NOTE | 2023-08-02 14:10 | CT_ITS ---
EXAM: CT ANGIOGRAPHY HEAD AND NECK WITH INTRAVENOUS CONTRAST CLINICAL INDICATION: Carotid artery stenosis TECHNIQUE: [place] [facility] [place]/head and neck CT angiography protocol performed with intravenous contrast. This CT exam was performed using one or more of the following dose reduction techniques: automated exposure control, adjustment of the mA and/or kV according to patient size, and/or use of iterative reconstruction technique. MIP reconstructed images were created and reviewed. CONTRAST: IV 100mL [id number] COMPARISON: No relevant prior studies available. FINDINGS: HEAD: RIGHT ANTERIOR CEREBRAL ARTERY: Unremarkable. No occlusion or significant stenosis. Anterior communicating artery is present. No aneurysm. RIGHT MIDDLE CEREBRAL ARTERY: Unremarkable. No occlusion or significant stenosis. No aneurysm. RIGHT POSTERIOR CEREBRAL ARTERY: Unremarkable. No occlusion or significant stenosis. No aneurysm. RIGHT INTRACRANIAL INTERNAL CAROTID ARTERY: Unremarkable. No significant stenosis. No dissection or occlusion. RIGHT INTRACRANIAL VERTEBRAL ARTERY: Unremarkable. No significant stenosis. No dissection or occlusion. LEFT ANTERIOR CEREBRAL ARTERY: Unremarkable. No occlusion or significant stenosis. No aneurysm. LEFT MIDDLE CEREBRAL ARTERY: Unremarkable. No occlusion or significant stenosis. No aneurysm. LEFT POSTERIOR CEREBRAL ARTERY: Unremarkable. No occlusion or significant stenosis. No aneurysm. LEFT INTRACRANIAL INTERNAL CAROTID ARTERY: Unremarkable. No significant stenosis. No dissection or occlusion. LEFT INTRACRANIAL VERTEBRAL ARTERY: Unremarkable. No significant stenosis. No dissection or occlusion. BASILAR ARTERY: Unremarkable. No occlusion or significant stenosis. No aneurysm. OTHER VASCULATURE: No vascular malformation. NECK: RIGHT COMMON CAROTID ARTERY: Unremarkable. No significant stenosis. No dissection or occlusion. RIGHT EXTRACRANIAL INTERNAL CAROTID ARTERY: There is calcific plaque in the carotid bulbs bilaterally. There is soft plaque seen posteriorly at the origin of the right internal carotid artery which narrows the vessel approximately 60 %. RIGHT EXTERNAL CAROTID ARTERY: Unremarkable. No occlusion. RIGHT EXTRACRANIAL VERTEBRAL ARTERY: Unremarkable. No significant stenosis. No dissection or occlusion. LEFT COMMON CAROTID ARTERY: Unremarkable. No significant stenosis. No dissection or occlusion. LEFT EXTRACRANIAL INTERNAL CAROTID ARTERY: See above. LEFT EXTERNAL CAROTID ARTERY: Unremarkable. No occlusion. LEFT EXTRACRANIAL VERTEBRAL ARTERY: Unremarkable. No significant stenosis. No dissection or occlusion. BRACHIOCEPHALIC AND SUBCLAVIAN ARTERIES: Unremarkable as visualized. No occlusion or significant stenosis. LUNG APICES: Unremarkable as visualized. HEAD and NECK: BONES/JOINTS: Unremarkable. No discrete lytic or blastic abnormalities. SOFT TISSUES: Unremarkable. CAROTID STENOSIS REFERENCE USING NASCET CRITERIA: % ICA stenosis = (1 - narrowest ICA diameter/diameter of distal cervical ICA) x 100. Mild - <50% stenosis. Moderate - 50-69% stenosis. Severe - 70-94% stenosis. Near occlusion - 95-99% stenosis. Occluded - 100% stenosis. CT/CTA Head AND Neck W/ Contrast IMPRESSION: Moderate stenosis of the origin of the right internal carotid artery with the vessel narrowed 60% due to soft plaque. All other vessels are patent. Electronically Signed: Rocky Soto MD at 0:19 EST ,
[2023-08-02 14:41] LABS: CREATININE FINGERSTICK 1.1 mg/dL (0.55-1.02)
== END | disposition home or self-care (01) ==
LOC: CT 14:06
PROVIDERS: PCP Psychiatry & Neurology Neurology; Referring Provider Psychiatry & Neurology Neurology; Visit Provider Psychiatry & Neurology Neurology
DX: Z01.812 Encounter for preprocedural laboratory examination (principal); I65.29 Occlusion and stenosis of unspecified carotid artery
CPT/HCPCS: 70496; 70498; Q9967

== ENCOUNTER 2023-08-22 10:48 | Emergency (ER) | payer MEDICARE, OTHER, SELFPAY ==
[2023-08-22 10:48] VITALS: BP 178/75; PULSE 71; RESP 16; TEMP 36.6; O2SAT 97; BMI 19.7
--- NOTE | 2023-08-22 11:04 | ED.VIS.FALL ---
HPI <CHUYITA Nash - Last Filed: 08/22/23 13:02> HPI - Fall History of Present Illness Chief Complaint: Fall Narrative Narrative: 78-year-old female with PMH of Alzheimer's dementia had an unwitnessed fall at 10. Has a laceration on her nose. Patient does not recall the fall. She is alert and oriented x 1-2 at baseline and is acting normally. She denies pain. She denies visual changes or vomiting. She is on Plavix. PFSH <CHUYITA Nash - Last Filed: 08/22/23 13:02> [facility] Medical History Alzheimer's dementia Breast anomaly Cerebrovascular disease Decreased hearing Dementia Lower extremity weakness Memory impairment Neuropathy of right peroneal nerve Numbness of right lower extremity Rash Right foot drop Shortness of breath Tobacco abuse Home Medications mecobalamin (vitamin B12) 1,000 mcg disintegrating tablet,sublingual 1,000 mcg sublingual DAILY #90 tabs 12/30/20 [Rx Last Taken Unknown] lisinopril 10 mg tablet 10 mg PO DAILY #90 tabs 02/03/21 [Rx Last Taken Unknown] acetaminophen 325 mg capsule 650 mg PO Q4H PRN pain/fever 07/13/21 [History Last Taken Unknown] Right AFO #1 ea 08/28/21 [Rx Last Taken Unknown] loperamide 2 mg tablet 2 mg PO Q6H PRN 01/13/22 [History Last Taken Unknown] denosumab 60 mg/mL subcutaneous syringe (Prolia) 60 mg subcut [id number] 07/13/22 [History Last Taken Unknown] magnesium hydroxide 2,400 mg/10 mL oral suspension (Milk Of Magnesia Concentrated) 30 ml PO DAILY PRN 07/13/22 [History Last Taken Unknown] atorvastatin 20 mg tablet 20 mg PO DAILY #90 tabs 07/15/23 [Rx Last Taken Unknown] buspirone 5 mg tablet 5 mg PO BID #180 tabs 07/15/23 [Rx Last Taken Unknown] donepezil 10 mg tablet 10 mg PO QHS #90 tabs 07/15/23 [Rx Last Taken Unknown] memantine 10 mg tablet 10 mg PO BID #180 tabs 07/15/23 [Rx Last Taken Unknown] clopidogrel 75 mg tablet See Rx Instructions .Route .COMPLEX #15 tabs 08/02/23 [Rx Last Taken Unknown] cephalexin 500 mg capsule 500 mg PO Q12 5 days #10 CAPSULES 08/22/23 [Rx Last Taken Unknown] Allergy/AdvReac Type Severity Reaction Status Date / Time No Known Allergies Allergy Verified 08/22/23 10:48 Family History Father Diabetes Myocardial infarction, Onset Age: 51 Uncle Diabetes Brother Myocardial infarction, Onset Age: 62 Diabetes Mother Parkinson disease Hypertension Sister Hypertension Surgical History No pertinent past surgical history Social History Smoking Status: Former smoker Tobacco: How many years used: 50 Electronic Cigarette Use: not used second hand exposure: No alcohol intake: never substance use type: does not use what type of physical activity do you participate in: aerobics ROS <CHUYITA Nash - Last Filed: 08/22/23 13:02> ROS ED ROS Narrative Eyes: Negative for visual change. GI: Negative for vomiting. Neuro: Negative for headache. Skin: Positive for laceration. EXAM <CHUYITA Nash - Last Filed: 08/22/23 13:02> Physical Exam Narrative Exam Narrative: CONST: Patient sitting in no acute distress. EYES: Normal inspection. PERRL, EOMI. ENT: 3 cm vertical linear laceration on bridge of nose with soft tissue swelling, no deformity or crepitus. Dried blood in both nares. No nasal septal hematoma. No raccoon eyes or Meraz sign, no hemotympanums, no CSF otorrhea or rhinorrhea. NECK: Normal inspection. RESP: No respiratory distress, CTAB. CVS: Regular rate and rhythm, no murmur, no gallop. Back: Normal inspection. SKIN: Color normal, no rash, warm, dry, intact. EXTREMITIES: Normal appearance, full ROM upper and lower extremities, no tenderness, 2+ radial DP pulses. NEURO: Oriented to self, face symmetric, follows commands. PSYCH: Normal affect. Const Vital Signs: 08/22/23 10:48 08/22/23 10:55 Temperature 97.8 F Temperature Source Temporal Pulse Rate 71 Respiratory Rate 16 Respiratory Effort Normal Non-Labored Respiratory Depth Normal Respiratory Pattern Normal Blood Pressure 178/75 H Blood Pressure Mean 109 Pulse Ox 97 Oxygen Delivery Method Room Air Room Air <Dr. Haris Dhaliwal DO - Last Filed: 08/22/23 12:37> Physical Exam Const Vital Signs: 08/22/23 10:48 08/22/23 10:55 Temperature 97.8 F Temperature Source Temporal Pulse Rate 71 Respiratory Rate 16 Respiratory Effort Normal Non-Labored Respiratory Depth Normal Respiratory Pattern Normal Blood Pressure 178/75 H Blood Pressure Mean 109 Pulse Ox 97 Oxygen Delivery Method Room Air Room Air MDM <CHUYITA Nash - Last Filed: 08/22/23 13:02> [facility] Narrative Medical decision making narrative: History gathered from: EMS, family Differential: Nasal laceration, open nasal fracture, intracranial hemorrhage Patient had an unwitnessed fall at [facility]. History of advanced dementia. She is awake and alert. GCS 15. Vital signs stable. She is alert to self which is baseline. Family at bedside states she is acting normally. She has a 4 cm linear midline nasal bridge abrasion. There is dried blood in both nares. No nasal septal hematoma. No intraoral trauma. No other injuries on exam. CT brain/facial/cervical spine films notable for a nondisplaced nasal fracture and suspected hemorrhage within the ethmoid sinuses and posterior nasopharynx. No other fractures. Let gel was applied to her laceration. It was thoroughly irrigated with sterile saline and prepped and draped in sterile condition. I placed 7 simple interrupted sutures of 6-0 Ethilon along the bridge of the nose. There is also an additional 0.5 cm laceration of the medial right nostril which I closed with 1 simple interrupted suture of 6-0 Ethilon. Total 8 sutures. She was placed on prophylactic Keflex and given an ENT referral if needed. She was able to ambulate and family is comfortable with discharge back to her facility. Radiography Diagnostic Testing: Clinical Impression(s) from Imaging Studies Brain CT 08/22/23 11:08 IMPRESSION: Chronic involutional changes of the brain. No acute intracranial hemorrhage Acute nondisplaced nasal fracture suspected with suspected hemorrhage in the ethmoid sinuses and posterior nasopharynx Electronically Signed: Janak Siddiqi MD at 12:12 EDT , Facial/Sinus 08/22/23 11:08 IMPRESSION: Acute nondisplaced nasal fracture with soft tissue swelling and suspected hemorrhage within the ethmoid sinuses and posterior nasopharynx. Nasal septal deviation to the right with a prominent spur. No other demonstrated facial fracture Electronically Signed: Janak Siddiqi MD at 12:15 EDT Reading Location ID and State: [facility] / [place] , Service support , Cervical Spine CT 08/22/23 11:20 IMPRESSION: Multilevel degenerative changes, as described above. No acute fracture Electronically Signed: Janak Siddiqi MD at 12:18 EDT Reading Location ID and State: [address] [place] [address] , Service support , <Dr. Haris Dhaliwal, DO - Last Filed: 08/22/23 12:37> MDM Radiography Diagnostic Testing: Clinical Impression(s) from Imaging Studies Brain CT 08/22/23 11:08 IMPRESSION: Chronic involutional changes of the brain. No acute intracranial hemorrhage Acute nondisplaced nasal fracture suspected with suspected hemorrhage in the ethmoid sinuses and posterior nasopharynx Electronically Signed: Janak Siddiqi MD at 12:12 EDT Reading Location ID and State: [facility] / [place] , Service support , Facial/Sinus 08/22/23 11:08 IMPRESSION: Acute nondisplaced nasal fracture with soft tissue swelling and suspected hemorrhage within the ethmoid sinuses and posterior nasopharynx. Nasal septal deviation to the right with a prominent spur. No other demonstrated facial fracture Electronically Signed: Janak Siddiqi MD at 12:15 EDT Reading Location ID and State: [facility] / [place] , Service support , Cervical Spine CT 08/22/23 11:20 IMPRESSION: Multilevel degenerative changes, as described above. No acute fracture Electronically Signed: Janak Siddiqi MD at 12:18 EDT Reading Location ID and State: [facility] / [place] , Service support , Treatment and Re-Evaluation Narrative: I have personally performed a face to face assessment of the patient and have reviewed the DRU Note. I performed a substantive portion of the visit including all aspects of the following. My jones findings include: History is 78-year-old female from memory unit presenting from a fall. Patient does not recall falling. Was noted to have facial trauma in the form of the nasal laceration deformity and bleeding. Patient does not complain of any hip arm lower extremity or neck pain. Reportedly the patient takes Plavix. Exam is there is a nasal laceration with deformity. Dried epistaxis but no evidence of septal hematoma. No intraoral trauma to suggest hard palate fracture. No neck tenderness. Moves all extremities and no pain to palpation particularly over her hips knees ankles elbows shoulders and wrist. Medical Decison Making CT of the brain facial bones and cervical spine demonstrated nasal fracture. Bleeding has been controlled. Wound will be washed explored and sutured by physician career services assistant. Family arrived and is with the patient. Procedures <CHUYITA Nash - Last Filed: 08/22/23 13:02> Lacerations nasal bridge: Length: 4 cm Depth: Skin Shape: Linear Prep: Sterile Conditions Laceration repair: Irrigated Irrigated (ml): 250 Number of Sutures/Niya: 7 Suture Information: Ethilon, Simple and 6-0 right nostril: Length: 0.5 cm Depth: Skin Shape: Linear Prep: Sterile Conditions Laceration repair: Irrigated Number of Sutures/Niya: 1 Suture Information: Ethilon, Simple and 6-0 Discharge Plan Triage Chief Complaint: Fall ED Midlevel Provider: Shahida Paulino ED Provider: Haris Dhaliwal Dx/Rx/DC Orders Clinical Impression: Head injury, Open fracture nasal bone Instructions: ED Facial Fracture Prescriptions: New cephalexin 500 mg capsule 500 mg PO Q12 5 Days Qty: 10 0RF No Action lisinopril 10 mg tablet 10 mg PO DAILY Qty: 90 3RF (DME) Right AFO See Rx Instructions .Route .MEDSUPPLY Qty: 1 0RF Rx Instructions: Use as directed M21.371 - Foot drop, right foot loperamide 2 mg tablet 2 mg PO Q6H PRN magnesium hydroxide [Milk Of Magnesia Concentrated] 2,400 mg/10 mL suspension 30 ml PO DAILY PRN Prolia 60 mg/mL syringe 60 mg subcut [id number] donepezil 10 mg tablet 10 mg PO QHS Qty: 90 1RF memantine 10 mg tablet 10 mg PO BID Qty: 180 1RF Rx Instructions: buspirone 5 mg tablet 5 mg PO BID Qty: 180 1RF atorvastatin 20 mg tablet 20 mg PO DAILY Qty: 90 1RF acetaminophen 325 mg Capsule 650 mg PO Q4H PRN (Reason: pain/fever) mecobalamin (vitamin B12) 1,000 mcg tablet,disintegrating 1,000 mcg sublingual DAILY Qty: 90 2RF Rx Instructions: place tablet under tongue and allow to dissolve for at least30 secs before swallowing clopidogrel 75 mg tablet See Rx Instructions .ROUTE .COMPLEX Qty: 15 7RF Rx Instructions: Take 1 tablet orally every other day Primary Care Provider: Skip [place] Referrals: Oral Joyce MD [Med Staff - Courtesy Staff] - Tristan Rubio MD [Non-Staff -Ordering Privileges] - Activity Restrictions/Additional Instructions: She fractured her nasal bones. I placed 8 stitches which need removed in 5 days. Keep the area clean. She can follow-up with ENT as needed. Disposition Disposition: Home, Self Care
--- NOTE | 2023-08-22 11:08 | CT_ITS ---
STUDY: CT FACIAL BONES WITHOUT CONTRAST REASON FOR EXAM: Female, 78 years old. Facial pain after fall RADIATION DOSAGE (If Supplied By Facility): CTDIvol = ( 29.38 ) mGy, DLP = ( 554.8 ) mGycm TECHNIQUE: The patient was scanned in a multi detector CT scanner. Sagittal and coronal images were reconstructed. Individualized dose optimization techniques were used for this CT. COMPARISON: None. FINDINGS: Acute nondisplaced nasal fracture with soft tissue swelling and suspected hemorrhage in the ethmoid sinuses and posterior nasopharynx. Diffuse mucosal thickening noted in the ethmoid sinuses. No other demonstrated fracture. There is nasal septal deviation to the right with a posterior spur. CT/Sinus/Facial Bone IMPRESSION: Acute nondisplaced nasal fracture with soft tissue swelling and suspected hemorrhage within the ethmoid sinuses and posterior nasopharynx. Nasal septal deviation to the right with a prominent spur. No other demonstrated facial fracture Electronically Signed: Janak Siddiqi MD at 12:15 EDT ,
--- NOTE | 2023-08-22 11:08 | CT_ITS ---
STUDY: CT BRAIN WITHOUT CONTRAST REASON FOR EXAM: Female, 78 years old. Headache after trauma RADIATION DOSAGE (If Supplied By Facility): CTDIvol = ( 44.99 ) mGy, DLP = ( 728.62 ) mGycm TECHNIQUE: Transaxial CT imaging of the brain was performed without administration of intravenous contrast material. Individualized dose optimization techniques were used for this CT. COMPARISON: No relevant priors. FINDINGS: Normal soft tissue structures. Normal calvarium. There is an acute nondisplaced nasal fracture with associated soft tissue thickening, likely hemorrhage within the ethmoid sinuses and posterior nasopharynx. There is mild cerebral atrophy with widening of the extra-axial spaces and ventricular dilatation. There are areas of decreased attenuation within the white matter tracts of the supratentorial brain, consistent with microvascular disease changes. Normal basal ganglia and thalami. Normal brainstem. Normal cerebellum. There is no intracranial hemorrhage. There are no findings of an acute ischemic infarction. No significant mucosal thickening noted in the maxillary or sphenoid sinuses CT/Brain/Head without Contrast IMPRESSION: Chronic involutional changes of the brain. No acute intracranial hemorrhage Acute nondisplaced nasal fracture suspected with suspected hemorrhage in the ethmoid sinuses and posterior nasopharynx Electronically Signed: Janak Siddiqi MD at 12:12 EDT ,
[2023-08-22] MEDS: Lidocaine/Epi/Tetracaine 50 ML 1 APPLIC TOPICAL (11:15)
--- NOTE | 2023-08-22 11:20 | CT_ITS ---
STUDY: CT CERVICAL SPINE WITHOUT CONTRAST REASON FOR EXAM: Female, 78 years old. Neck pain after trauma RADIATION DOSAGE (If Supplied By Facility): CTDIvol = ( 11.87 ) mGy, DLP = ( 229.02 ) mGycm TECHNIQUE: High resolution transaxial imaging was performed without contrast material. Sagittal and coronal images were reconstructed. Individualized dose optimization techniques were used for this CT. COMPARISON: None FINDINGS: Normal craniovertebral junction. Normal anterior atlantoaxial articulation. Normal odontoid process. Normal cervical lordosis. Normal vertebral bodies and posterior osseous elements. C2-3: Normal endplates. Normal disc height and morphology. Normal central canal and intervertebral neuroforamina. C3-4: Normal endplates. Normal disc height and morphology. Normal central canal and intervertebral neuroforamina. C4-5: Normal endplates. Normal disc height and morphology. Normal central canal and intervertebral neuroforamina. C5-6: Sclerotic endplate changes with disc space narrowing and posterior uncovertebral spurs. No central canal narrowing, there is bilateral foraminal narrowing, right worse than left due to facet joint hypertrophy. C6-7: Normal endplates. Disc space narrowing with uncovertebral spurs. No central canal narrowing, there is mild bilateral foraminal narrowing due to facet joint hypertrophy C7-T1: Normal endplates. Normal disc height and morphology. Normal central canal and intervertebral neuroforamina. Prevertebral soft tissues show dense calcifications in the carotid artery bulbs. Small thyroid nodule noted in the left lobe lung apices show underlying emphysema and pleural thickening CT/Spine Cervical without Contras IMPRESSION: Multilevel degenerative changes, as described above. No acute fracture Electronically Signed: Janak Siddiqi MD at 12:18 EDT ,
[2023-08-22] MEDS: Lidocaine 1% (20 ml mdv) 20 ML Vial INFILT (12:46)
[2023-08-22] MEDS: Cephalexin 250 MG Capsule 500 MG PO (13:00)
[2023-08-22 13:09] VITALS: BP 180/78; PULSE 81; RESP 16; TEMP 36.4; O2SAT 94
--- NOTE | 2023-08-22 13:17 | NURSING ---
report called to renu hightower. family to take with dc packet
== END 2023-08-22 13:35 | disposition home or self-care (01) ==
PROVIDERS: Emergency Provider Emergency Medicine; PCP Family Medicine; Visit Provider Emergency Medicine
DX: S02.2XXB Fracture of nasal bones, initial encounter for open fracture (principal); G30.9 Alzheimer's disease, unspecified; S06.9XAA Unspecified intracranial injury with loss of consciousness status unknown, initial encounter; Z87.891 Personal history of nicotine dependence; W19.XXXA Unspecified fall, initial encounter; Z79.899 Other long term (current) drug therapy; Y92.099 Unspecified place in other non-institutional residence as the place of occurrence of the external cause
CPT/HCPCS: 12013; 70450; 70486; 72125; 99283

== ENCOUNTER → 2024-01-14 | Outpatient (CLI) | payer MEDICARE, OTHER, SELFPAY ==
[2024-01-14 10:05] LABS: Hematocrit 42.4 % (37-47); Hemoglobin 13.5 g/dL (12.0-15.0); Mean Corp Hgb Conc 31.8 g/dL (32-36); Mean Corpuscular Hgb 28.3 pg (27.0-32.0); Mean Corpuscular Volume 88.9 fL (81-99); Mean Platelet Vol. 10.3 fl (6.2-12.0); Platelet Count 266 K/mm3 (150-450); RBC Distribution Width CV 14.4 % (11.6-14.6); RBC Distribution Width SD 45.7 fl (35.1-43.9); Red Blood Count 4.77 M/mm3 (4.2-5.4); White Blood Count 5.8 K/mm3 (4.4-11.0)
[2024-01-14 10:32] LABS: ALB/GLOB Ratio 0.9 RATIO (0.9-2.4); AST(SGOT) 14 U/L (15-37); Alanine Aminotransfer ALT/SGPT 19 U/L (13-56); Albumin, Serum 3.5 g/dL (3.2-5.0); Alkaline Phosphatase 69 U/L (45-117); Anion Gap 3 (5-15); BUN 12 mg/dL (7-18); BUN/Creat Ratio 11.7 RATIO (10-20); Calcium,Total 8.9 mg/dL (8.5-10.1); Chloride 114 mmol/L (98-107); Creatinine, Serum 1.03 mg/dL (0.55-1.02); EST Glomerular Filtration Rate 55 mL/min (>60); Est Glom Filt Rate - Afr Amer 67 mL/min (>60); Globulin 3.8 g/dL (2.2-4.2); Glucose 91 mg/dL (74-106); Potassium 3.9 mmol/L (3.5-5.1); Protein, Total 7.3 g/dL (6.4-8.2); Sodium Level 145 mmol/L (136-145); Thyroid Stim Hormone (TSH) 1.58 uIU/mL (0.358-3.74)
[2024-01-14 10:38] LABS: Vitamin B12 1611 pg/mL (211-911)
[2024-01-19 18:08] LABS: Vitamin B1, Thiamine 106.3 nmol/L (66.5-200.0)
== END | disposition home or self-care (01) ==
LOC: MTLAB 08:15
PROVIDERS: PCP Family Medicine; Referring Provider Psychiatry & Neurology Neurology; Visit Provider Psychiatry & Neurology Neurology
DX: G30.1 Alzheimer's disease with late onset (principal); F02.80 Dementia in other diseases classified elsewhere, unspecified severity, without behavioral disturbance, psychotic disturbance, mood disturbance, and anxiety
CPT/HCPCS: 36415; 80053; 82607; 82746; 84425; 84443; 85027

== ENCOUNTER 2024-08-27 00:10 | Emergency (ER) | payer MEDICARE, OTHER, SELFPAY ==
[2024-08-27 00:11] VITALS: BP 111/83; PULSE 66; RESP 14; TEMP 36.2; O2SAT 96; BMI 21.7
--- NOTE | 2024-08-27 00:30 | EX.ED.DYSGE1 ---
HPI History of Present Illness Chief Complaint: Laceration Informant: patient and SNF Narrative Narrative: Patient is a 79-year-old female with past medical history of hypertension and dementia. She stays at a custodial secondary to her dementia and is typically alert and oriented to person only. She had an unwitnessed fall at the custodial and sustained a laceration to her forehead. Nursing reports she is acting at her baseline mental status and they confirm she is not on any type of blood thinner. They also report her CODE STATUS is DNR comfort care only. With concern that the laceration will need close she was sent to the ER for evaluation Upon arrival to the ER the patient states she does not remember how she fell but otherwise has no complaints. [facility] Medical History Neuropathy of right peroneal nerve Numbness of right lower extremity Right foot drop Lower extremity weakness Alzheimer's dementia Cerebrovascular disease Breast anomaly Shortness of breath Dementia Memory impairment Tobacco abuse Rash Decreased hearing Home Medications ?Medication ?Instructions ?Recorded ?Last Taken ?Type mecobalamin (vitamin B12) 1,000 1,000 mcg sublingual DAILY #90 tabs 12/30/20 Unknown Rx mcg disintegrating tablet,sublingual lisinopril 10 mg tablet 10 mg PO DAILY #90 tabs 02/03/21 Unknown Rx acetaminophen 325 mg capsule 650 mg PO Q4H PRN pain/fever 07/13/21 Unknown History denosumab 60 mg/mL subcutaneous 60 mg subcut [id number] 07/13/22 Unknown History syringe (Prolia) magnesium hydroxide 2,400 mg/10 mL 30 ml PO DAILY PRN 07/13/22 Unknown History oral suspension (Milk Of Magnesia Concentrated) albuterol sulfate 90 mcg/actuation 2 puff inhalation Q6H PRN 01/13/24 Unknown History aerosol inhaler fluoride (sodium) 1.1 % dental gel 1 applic dental DAILY 01/13/24 Unknown History (PreviDent) loperamide 2 mg tablet 2 mg PO .COMPLEX PRN 01/13/24 Unknown History atorvastatin 20 mg tablet 20 mg PO DAILY #90 tabs 01/22/24 Unknown Rx buspirone 5 mg tablet 5 mg PO BID #180 tabs 01/22/24 Unknown Rx clopidogrel 75 mg tablet See Rx Instructions .Route 01/22/24 Unknown Rx .COMPLEX #45 tabs donepezil 10 mg tablet 10 mg PO QHS #90 tabs 01/22/24 Unknown Rx memantine 10 mg tablet 10 mg PO BID #180 tabs 01/22/24 Unknown Rx Allergy/AdvReac Type Severity Reaction Status Date / Time No Known Allergies Allergy Verified 08/27/24 00:11 Family History Father Diabetes Myocardial infarction, Onset Age: 51 Uncle Diabetes Brother Myocardial infarction, Onset Age: 62 Diabetes Mother Parkinson disease Hypertension Sister Hypertension Surgical History No pertinent past surgical history Social History Smoking Status: Former smoker Tobacco: How many years used: 50 Electronic Cigarette Use: not used second hand exposure: No alcohol intake: never substance use type: does not use what type of physical activity do you participate in: aerobics ROS ROS ED ROS Narrative Please note review of systems may be unreliable secondary to patient's history of dementia Constitutional Constitutional ED: Denies chills or fever(s) Eyes Eyes: Denies blurry vision or change in vision ENT ENT ED: Denies sore throat Cardiovascular Cardiovascular: Reports other Details: Negative syncope ; Denies chest pain Respiratory/Chest Respiratory/Chest: Denies cough or dyspnea Gastrointestinal Gastrointestinal: Denies abdominal pain, diarrhea, nausea or vomiting Genitourinary Genitourinary ED: Denies dysuria Musculoskeletal Musculoskeletal: Denies back pain or neck pain Integumentary Reports other Details: Positive laceration Neurologic Neurologic: Denies headache(s), paresthesias or weakness Hematologic/Lymphatic Hematologic/Lymphatic: Denies easy bleeding or easy bruising EXAM Physical Exam Const Vital Signs: 08/27/24 00:11 Temperature 97.1 F L Temperature Source Axillary Pulse Rate 66 Respiratory Rate 14 Blood Pressure 111/83 H Blood Pressure Mean 92 Pulse Ox 96 Oxygen Delivery Method Room Air Positive well nourished and well developed General Appearance ED: well developed HEENT HEENT Narrative: Patient has a linear 3 cm subcutaneous layer deep laceration to the left upper portion of the forehead/parietal portion of the scalp. There is minimal ooze of blood with no retained foreign body. No findings of depressed or basilar skull fracture. Eyes PERRL and EOMs intact bilaterally Eyes Narrative: No hyphema Neck supple Neck Narrative: No bony deformity or step-off of the cervical spine no midline tenderness to palpation Patient is able to move her neck in all directions without pain Chest Wall palpation of chest normal Chest Narrative: No bony deformity or crepitance of the chest wall noted No pain with palpation of the chest wall Resp normal respiratory effort and clear to auscultation bilaterally Cardio regular rate and regular rhythm GI normal to inspection, nondistended, normoactive bowel sounds, non-tender, non-distended and no masses GI Narrative: No voluntary guarding or rigidity or pulsatile mass Auscultation: normoactive bowel sounds Palpation: soft Back/Spine Back/Spine Narrative: No bony deformity or step-off of the thoracic or lumbar spine no midline tenderness to palpation Extremity normal to inspection Extremity Narrative: Pelvis is stable there is no shortening or external rotation of either lower extremity Patient can move all extremities without difficulty No obvious bony deformity or joint effusion noted Neuro CN's II-XII intact bilaterally and no sensory deficits noted Neuro Narrative: GCS of 14 Patient is awake and alert to person only which is baseline mental status per custodial. Otherwise no focal neurologic finding noted NIH stroke scale score of 0 Sensorium / Orientation: alert Motor Exam: strength 5/5 throughout Psych mental status grossly normal Skin Skin Narrative: Laceration to the left sided forehead/scalp as documented above MDM MDM MDM Narrative Medical decision making narrative: Patient arrived to the ER at her baseline mental status with stable vital. She had an unwitnessed fall and head trauma but she is not on a blood thinner nor does she have a history of bleeding disorder. She is at her baseline mental status and she is able to move her neck and extremities all without difficulty or pain. As her physical exam does not suggest skull fracture or traumatic subarachnoid or subdural hemorrhage. Nor does it suggest a compression fracture of the spine or potential pelvic fracture or long bone fracture I do not feel there is need for imaging especially as the patient is a DNR comfort care only and a head CT confirming brain bleed would not alter her treatment options. Therefore the patient's wound was closed as documented below and she is otherwise safe to return to the custodial Patient had the scalp wound cleaned with chlorhexidine. It was anesthetized with 6 mL of 2% lidocaine with epinephrine in local fashion. The wound was copiously irrigated with normal saline. Then 8 niya were placed across the wound edges bringing them together well with good approximation. Patient tolerated the procedure well without complication. History & Record Review Discussion w/independent historian: EMS personnel, Patient and Other (penitentiary/papers) Discharge Plan Triage Chief Complaint: Laceration ED Provider: Jaycob Shah Dx/Rx/DC Orders Clinical Impression: Head injury, Dementia, Hypertension, Laceration of scalp, Hyperlipidemia Instructions: ED Head Injury (Adult), ED Laceration Scalp Stitches or Niya Prescriptions: No Action lisinopril 10 mg tablet 10 mg PO DAILY Qty: 90 3RF loperamide 2 mg tablet 2 mg PO .COMPLEX PRN Rx Instructions: 2 mg orally for each additional loose stool not to exceed 8 tablets (16mg) in a 24 hr period PRN; magnesium hydroxide [Milk Of Magnesia Concentrated] 2,400 mg/10 mL suspension 30 ml PO DAILY PRN Prolia 60 mg/mL syringe 60 mg subcut [id number] albuterol sulfate 90 mcg/actuation HFA aerosol inhaler 2 puff inhalation Q6H PRN fluoride (sodium) [PreviDent] 1.1 % gel 1 applic dental DAILY atorvastatin 20 mg tablet 20 mg PO DAILY Qty: 90 3RF buspirone 5 mg tablet 5 mg PO BID Qty: 180 3RF clopidogrel 75 mg tablet See Rx Instructions .ROUTE .COMPLEX Qty: 45 3RF Rx Instructions: Take 1 tablet orally every other day donepezil 10 mg tablet 10 mg PO QHS Qty: 90 3RF memantine 10 mg tablet 10 mg PO BID Qty: 180 3RF acetaminophen 325 mg Capsule 650 mg PO Q4H PRN (Reason: pain/fever) mecobalamin (vitamin B12) 1,000 mcg tablet,disintegrating 1,000 mcg sublingual DAILY Qty: 90 2RF Rx Instructions: place tablet under tongue and allow to dissolve for at least30 secs before swallowing Primary Care Provider: Skip Park Referrals: Skip Park MD [Primary Care Provider] - Activity Restrictions/Additional Instructions: Please see your family doctor or return to the ER in 10 to 14 days for staple removal. Print Language: [place] African Disposition Disposition: Home, Self Care
[2024-08-27] MEDS: Lidocaine 2% /Epi 1:100 (20ml) 20 ML VIAL INFILT (00:33)
[2024-08-27 02:48] VITALS: BP 110/88; PULSE 61; RESP 14; TEMP 36.4; O2SAT 99
== END 2024-08-27 03:19 | disposition skilled nursing facility (03) ==
PROVIDERS: Emergency Provider Emergency Medicine; PCP Family Medicine; Visit Provider Emergency Medicine
DX: S01.01XA Laceration without foreign body of scalp, initial encounter (principal); F02.80 Dementia in other diseases classified elsewhere, unspecified severity, without behavioral disturbance, psychotic disturbance, mood disturbance, and anxiety; Z87.891 Personal history of nicotine dependence; I10 Essential (primary) hypertension; W19.XXXA Unspecified fall, initial encounter; E78.5 Hyperlipidemia, unspecified
CPT/HCPCS: 12013; 99284